=== PATIENT | male | born 1980 | race African-American/Black ===

== ENCOUNTER 2017-11-22 08:33 | Emergency (ER) | payer MEDICARE, BC ==
[2017-11-22 09:44] LABS: Hemoglobin 13.9 g/dL (14.0-18.0); Mean Corpuscular HGB CONC 32.6 g/dL (32.0-36.0); Mean Corpuscular Hemoglobin 27.4 pg (27.0-31.0); Mean Corpuscular Volume 84.1 fl (80.0-94.0); Platelet Count 213 thou/uL (130-400); RBC Distribution Width 12.9 % (11.5-14.5); Red Blood Cell (RBC) Count 5.07 mill/uL (4.70-6.10); White Blood Cell (WBC) Count 21.8 thou/uL (4.8-10.8)
[2017-11-22 09:47] LABS: Band 13 % (5-11); Lymphocytes 8 % (21-51); MDiff Complete? YES; Monocytes 2 % (0-10); Neutrophil 77 % (42-75); RBC Morphology Normal
[2017-11-22 09:50] LABS: ALT (SGPT) 11 U/L (8-55); AST (SGOT) 14 U/L (5-34); Albumin 3.7 g/dL (3.5-5.0); Alkaline Phosphatase 91 U/L (40-150); Anion Gap 11 mmol/L (10-20); BUN (Urea Nitrogen) 12 mg/dL (8.9-20.6); Bilirubin, Total 1.4 mg/dL (0.2-1.2); Calc. Creatinine Clearance 0 mL/min (70-130); Calcium 9.4 mg/dL (7.8-10.44); Carbon Dioxide 26 mmol/L (22-29); Chloride 103 mmol/L (98-107); Estimated GFR-MDRD Greater than 90; Globulin 3.2 g/dL (2.4-3.5); Glucose 91 mg/dL (70-105); Potassium 3.3 mmol/L (3.5-5.1); Protein, Total 6.9 g/dL (6.0-8.3); Sodium 137 mmol/L (136-145)
[2017-11-22 09:50] LABS: Bilirubin Small (Negative); Blood, Urine Large (Negative); Clarity TURBID (Clear); Glucose, Urine (Dipstick) Negative (Negative); Leukocyte Large (Negative); Nitrite Positive (Negative); Protein, Urine (Dipstick) 100 mg/dL (Neg-Trace); Specific Gravity, Urine 1.027 (1.002-1.036)
[2017-11-22 09:52] LABS: Bacteria/HPF 4+ HPF (None Seen); Hyaline Casts/LPF 7-10 HYALINE CAST LPF (0-3 Hyaline); Pathc Cast-AUWi Flag 1.61 (0-2.49); RBC/HPF GREATER THAN 50-TNTC HPF (0-3); Squamous Epithelial 0-3 HPF (0-3)
--- NOTE | 2017-11-22 11:12 | ULT ---
TESTICULAR ULTRASOUND: INDICATION: Left testicular swelling for 1 day. TECHNIQUE: Mendoza scale, color Doppler, with vascular duplex and spectral analysis was performed of the scrotum. FINDINGS: The right testicle measured 4.2 x 1.9 x 2.6 cm. The left testicle measures 4.2 x 3.1 x 3.1 cm. There is increased vascular flow to the left testicle and left epididymis. There is a small left hyd rocele. IMPRESSION: Findings of left epididymal orchitis with small left hydrocele. POS: ALEX
[2017-11-22] MEDS ORDERED: Lidocaine 1% PF 5 ML VIAL ONE (11:22)
[2017-11-22] MEDS ORDERED: cefTRIAXone\\ROCEPHIN 2 GM VIAL ONE (11:22)
[2017-11-22] MEDS ORDERED: Doxycycline 100 MG CAP PO SCH (11:30)
[2017-11-22] MEDS ORDERED: Acetaminophen 500 MG TAB ONE ×2 (12:13→12:15)
[2017-11-24 21:09] LABS: Chlamydia trachomatis by NAA Negative (Negative)
== END 2017-11-22 12:19 | disposition home or self-care (01) ==
LOC: ERS 08:33
DX: N39.0 Urinary tract infection, site not specified (principal); I10 Essential (primary) hypertension
CPT/HCPCS: 36415; 51701; 76870; 80053; 81003; 81015; 83605; 85025; 87077; 87086; 87186; 87491; 87591; 93976; 96372; J0696; J2001

== ENCOUNTER 2020-06-26 04:05 | Inpatient (IN) | payer MEDICARE, OTHER ==
[2020-06-26 04:35] LABS: Actual Bicarbonate (HCO3a) 15.5 mEq/L (22-28); Analyzer IN Cardio ER; Base Excess (BEa) -8.4 mEq/L (-2.0 to +3.0); CO2 Tension 27.7 mmHg (35.0-45.0); Calcium, Ionized (arterial) 0.86 mmol/L (1.12-1.30); Carboxyhemoglobin (COHb) 1.1 gm% (0.0-3.0); Hemoglobin (Hb) 11.6 g/dL (14.0-18.0); Potassium - ABG Lab 2.75 mmol/L (3.70-5.30); pH, Arterial 7.37 (7.35-7.45)
[2020-06-26 04:37] LABS: ALV-art Gradient 622.975 mmHg (0-20); O2 Tension (PaO2), arterial 55.4 mmHg (80.0-100.0); Puncture Site RRA
[2020-06-26] MEDS ORDERED: Cefepime 2 GM VIAL ONE (04:42)
[2020-06-26 05:04] LABS: ALT (SGPT) 12 U/L (8-55); AST (SGOT) 28 U/L (5-34); Albumin 3.3 g/dL (3.5-5.0); Alkaline Phosphatase 92 U/L (40-110); Anion Gap 33 mmol/L (10-20); Calc. Creatinine Clearance 0 mL/min (70-130); Calcium 7.5 mg/dL (7.8-10.44); Carbon Dioxide 19 mmol/L (22-29); Chloride 82 mmol/L (98-107); Estimated GFR-MDRD 4; Globulin 3.7 g/dL (2.4-3.5); Glucose 196 mg/dL (70-105); Sodium 131 mmol/L (136-145)
[2020-06-26 05:13] LABS: Potassium 2.5 mmol/L (3.5-5.1)
[2020-06-26 05:14] LABS: Band 4 % (5-11); Hemoglobin 11.3 g/dL (14.0-18.0); Lymphocytes 2 % (21-51); MDiff Complete? YES; Mean Corpuscular HGB CONC 32.9 g/dL (32.0-36.0); Mean Corpuscular Hemoglobin 28.1 pg (27.0-31.0); Mean Corpuscular Volume 85.6 fL (78.0-98.0); Mean Platelet Volume 6.6 fL (7.4-10.4); Monocytes 5 % (0-10); Neutrophil 89 % (42-75); Platelet Count 130 thou/uL (130-400); RBC Distribution Width 14.8 % (11.5-14.5); Red Blood Cell (RBC) Count 4.01 mill/uL (4.70-6.10); Schistocytes SLIGHT = 2-5 cells (100X) (0-1/hpf); White Blood Cell (WBC) Count 21.6 thou/uL (4.8-10.8)
[2020-06-26 05:16] LABS: BUN (Urea Nitrogen) 123 mg/dL (8.9-20.6)
[2020-06-26] MEDS ORDERED: Nitroglycerin 0.4 MG TAB 1 EACH ONE (05:23)
[2020-06-26] MEDS ORDERED: Vancomycin 1 GM/200 ML BAG ONE (05:23)
[2020-06-26 05:36] LABS: CKMB 14.4 ng/mL (0-6.6)
[2020-06-26 05:58] LABS: SARS-CoV-2 NAA Rapid Test Not Detected (NotDetected)
[2020-06-26] MEDS ORDERED: Nitroglycerin 50 MG/250 ML BOT 250 ML ONE (06:07)
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
--- NOTE | 2020-06-26 07:34 | RAD ---
RADIOGRAPH CHEST 1 VIEW: DATE: 06/26/2020 TIME: 4:25 AM HISTORY: 40-year-old male with dyspnea COMPARISON: 01/25/2014 FINDINGS: There is a dramatic new finding of severe central consolidations involving all visualized lung arce , with relative sparing of the apical, basilar, medial, and lateral periphery of the lungs, but dense opacification of most of the lungs, with air bronchograms. No pneumothorax. IMPRESSION: Severe bilateral central consolidations: Differential diagnosis is severe pulmonary alveolar edema ve rsus severe bilateral pneumonia versus pulmonary hemorrhage .
[2020-06-26] MEDS ORDERED: cloNIDine 0.1 MG TAB ONE (07:43)
[2020-06-26 08:01] LABS: Troponin I 1.427 ng/mL (< 0.028)
[2020-06-26 08:10] LABS: HBSAg Index 0.13 S/CO (0-0.99); Hep B Core Total Ab Non-Reactive (NonReactive); Hep B Core Total Index 0.09 S/CO (0-0.79); Hep B Surf Ag Non-Reactive S/CO (NonReactive); Hep C IgG Ab Non-Reactive (NonReactive); Hep C Index 0.09 S/CO (0-0.79)
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
[2020-06-26 08:56] LABS: Lactic Acid 2.7 mmol/L (0.5-2.2)
[2020-06-26] MEDS ORDERED: Acetaminophen 325 MG TAB PO PRN (09:17)
[2020-06-26 09:44] LABS: HBSAg Index 0.19 S/CO (0-0.99); Hep B Surf Ag Non-Reactive S/CO (NonReactive)
[2020-06-26 09:47] LABS: HBSAB Concentration 1001.19 mIU/mL
[2020-06-26 09:52] LABS: Hep B Surf AB REACTIVE (NonReactive)
[2020-06-26 11:25] LABS: Hemoglobin A1c 4.1 % (4.0-6.0)
[2020-06-26] MEDS ORDERED: Heparin 5,000 UNITS/ML VIAL SC SCH (11:30)
[2020-06-26 11:33] LABS: Reticulocyte Count 6.6 % (0.5-1.5)
[2020-06-26] MEDS: Heparin 5,000 UNITS/ML VIAL SC SCH ×2 (11:33→21:34)
[2020-06-26 12:00] LABS: Troponin I 1.633 ng/mL (< 0.028)
[2020-06-26] MEDS ORDERED: methylPREDNISolone Sod Succ/PF 125 MG/2 ML VIAL IVP SCH (12:03)
[2020-06-26] MEDS: Labetalol HCl 100 MG/20 ML VIAL SLOW IVP PRN (13:38)
[2020-06-26] MEDS: Nitroglycerin 2% Ointment 1 INCH/1 GM Packet TOP SCH ×2 (13:38→23:23)
[2020-06-26] MEDS: methylPREDNISolone Sod Succ 1 GM in Sodium Chloride 0.9% 250 ML 250 ML IVPB SCH (13:42)
[2020-06-26] MEDS ORDERED: Heparin 10,000 UNITS/ 10 ML VIAL ONE (13:44)
[2020-06-26] MEDS ORDERED: niCARdipine 40MG In NaCl 40 MG/200 ML BAG IVPB SCH (14:30)
[2020-06-26] MEDS: niCARdipine 50 MG in Sodium Chloride 0.9% 250 ML 230 ML IV SCH (14:58)
--- NOTE | 2020-06-26 16:12 | ULT ---
Exam: Bilateral renal ultrasound HISTORY: Acute kidney insufficiency. Evaluate for obstruction COMPARISON: None FINDINGS: Right kidney: Cortical thinning. Increased echogenicity of the cortex. No hydronephrosis. Right kidney measurements: 9.7 x 4.3 x 4.3 cm. Left kidney: Cortical thinning. Increased echogenicity of the cortex. No hydronephrosis. Left kidney measurements 4.7 x 9.9 x 4.8 cm. Urinary bladder: Normal mucosa abnormality Incidentals: Small amount of right-sided pleural fluid. Though Doppler imaging was not performed, there does appear to be decreased vascular flow to the left and right kidney. IMPRESSION: 1. Bilateral renal cortical thinning. Increased renal cortical echogenicity. Decreased vascular flow. Correlate for medical renal disease. Consider renal Doppler. 2. No hydronephrosis.
[2020-06-26] MEDS: Carvedilol 3.125 MG TAB PO SCH (16:58)
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
[2020-06-26 18:34] LABS: Bilirubin Negative (Negative); Blood, Urine 2+ (Negative); Clarity Turbid (Clear); Glucose, Urine (Dipstick) 50 mg/dL (Negative); Ketone, Urine Trace mg/dL (Negative); Leukocyte 500 Leu/uL (Negative); Nitrite Negative (Negative); Protein, Urine (Dipstick) 600 mg/dL (Neg-Trace); Renal Epithelial 0-3 HPF (None Seen); Specific Gravity, Urine 1.014 (1.002-1.036); Squamous Epithelial 0-3 HPF (0-3); Transitional Epithelial 0-3 HPF (None Seen); Urobilinogen Normal mg/dL (Less than 2); WBC/HPF Greater than 50 HPF (0-3)
[2020-06-26 18:41] LABS: Bacteria/HPF 2+ HPF (None Seen); Sperm/HPF 1+ HPF (None Seen)
[2020-06-26 18:46] LABS: Creatinine, Urine 90.88 mg/dL (63-166)
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
[2020-06-27] MEDS: niCARdipine 50 MG in Sodium Chloride 0.9% 250 ML 230 ML IV SCH ×2 (02:27→08:41)
[2020-06-27 03:23] LABS: Band 2 % (5-11); Hemoglobin 9.5 g/dL (14.0-18.0); Lymphocytes 2 % (21-51); MDiff Complete? YES; Mean Corpuscular HGB CONC 33.1 g/dL (32.0-36.0); Mean Corpuscular Hemoglobin 28.2 pg (27.0-31.0); Mean Corpuscular Volume 85.3 fL (78.0-98.0); Mean Platelet Volume 11.6 fL (7.4-10.4); Neutrophil 96 % (42-75); Platelet Count 138 thou/uL (130-400); Platelet Morphology Comment Appears Adequate; RBC Distribution Width 15.1 % (11.5-14.5); Red Blood Cell (RBC) Count 3.36 mill/uL (4.70-6.10); White Blood Cell (WBC) Count 15.9 thou/uL (4.8-10.8)
[2020-06-27 03:31] LABS: Iron 23 ug/dL (65-175); Iron Binding Capacity, Total 155 mcg/dL (261-462)
[2020-06-27 03:32] LABS: Anion Gap 22 mmol/L (10-20); BUN (Urea Nitrogen) 89 mg/dL (8.9-20.6); Calc. Creatinine Clearance 9 mL/min (70-130); Calcium 8.3 mg/dL (7.8-10.44); Carbon Dioxide 22 mmol/L (22-29); Cardiac Risk 3.2 (Less than 4.5); Chloride 94 mmol/L (98-107); Cholesterol 146 mg/dl (< 200 Desired); Estimated GFR-MDRD 5; Glucose 145 mg/dL (70-105); HDL Cholesterol 45 mg/dL (>60 Neg Risk); LDL Cholesterol, Calculated 76 mg/dL; Potassium 3.1 mmol/L (3.5-5.1); Sodium 135 mmol/L (136-145); Triglycerides 124 mg/dL (Less than 150)
[2020-06-27 03:55] LABS: Vitamin D, 25 Hydroxy 5.9 ng/ml (> 30.0)
[2020-06-27] MEDS: Nitroglycerin 2% Ointment 1 INCH/1 GM Packet TOP SCH (06:22)
[2020-06-27] MEDS: Heparin 5,000 UNITS/ML VIAL SC SCH ×2 (07:55→21:00)
[2020-06-27] MEDS: Carvedilol 3.125 MG TAB PO SCH (07:55)
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
--- NOTE | 2020-06-27 08:52 | RAD ---
PORTABLE CHEST: COMPARISON: Prior day's study. HISTORY: Respiratory distress. FINDINGS: There has been a definite improvement to the chest. The dense alveolar opacification of the more judy tral lung arce has improved, although there are still extensive interstitial alveolar changes prese nt. Heart size is enlarged. IMPRESSION: Improvement to the dense alveolar lung consolidation still with extensive alveolar lung changes in parth th lung arce. POS: YOANDY
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
[2020-06-27] MEDS: methylPREDNISolone Sod Succ 1 GM in Sodium Chloride 0.9% 250 ML 250 ML IVPB SCH (12:15)
[2020-06-27] MEDS: cloNIDine 0.1 MG TAB PO PRN (12:37)
--- NOTE | 2020-06-27 13:59 | PRG ---
DATE OF SERVICE: 06/27/2020 SUBJECTIVE: [place] says he feels 100% better. He is on a cannula. OBJECTIVE: VITAL SIGNS: He is afebrile. Blood pressure still modestly elevated at 145/94, respiratory rate is in teens, heart rate is 118. LUNGS: Remarkable for equal breath sounds with fine crackles at his bases. HEART: Regular rhythm. There is no S4. ABDOMEN: Soft and nontender. LABORATORY DATA: White count 15.9, hemoglobin 9.5, platelets 138. Sedimentation rate was 60. Hepatitis studies are negative, except for the surface antibody. Surface antigen was negative. COVID screen was negative. Creatinine is down to 12.45. Potassium is 3.1. Urinalysis showed 600 mg/dL protein and 11 to 20 red cells. IMPRESSION: Possible pulmonary renal syndrome. Cortical thinning may be secondary to hypertension, but may be unrelated to the chest x-ray. Failure to see dramatic improvement in his radiograph and history of hemoptysis argues that maybe he has a pulmonary hemorrhage syndrome. Serology has been sent. I do not feel bronchoscopy is indicated at this time. We will follow closely. He is empirically started on 1 g a day of Solu-Medrol for 3 days. Job ID: [id number]
[2020-06-27 14:09] LABS: Ferritin 986.74 ng/mL (22-322)
[2020-06-27] MEDS ORDERED: hydrALAZINE 10 MG TAB PO SCH (15:00)
[2020-06-27] MEDS ORDERED: hydrALAZINE 25 MG TAB PO SCH (15:30)
--- NOTE | 2020-06-27 17:32 | PRG ---
DATE OF SERVICE: 06/27/2020 SUBJECTIVE: Patient was seen and examined at bedside and overnight events noted. Patient denies any shortness of breath or chest pain or palpitation. No history of nausea or vomiting or diarrhea or fever or chills or cramps. OBJECTIVE: GENERAL: This is a well-built male, in no apparent distress. VITAL SIGNS: Temperature 98.6. Heart rate 113. Respiratory rate 28. Blood pressure 171/108. HEENT: Atraumatic, normocephalic. Oral mucosa is moist NECK: Supple. CARDIOVASCULAR: S1, S2 heard. Rate and rhythm regular. RESPIRATORY: Clear to auscultation. GASTROINTESTINAL: Abdomen is soft. MUSCULOSKELETAL: No tenderness. No edema. DERMATOLOGIC: No skin rash. NEUROLOGIC: Alert and awake and oriented X3. No focal neurologic deficits. Moving all the extremities. PSYCHIATRIC: Mood and affect normal. LABORATORY DATA: Hemoglobin 9.5. Potassium 3.1, BUN is 89, creatinine is 12.4. ASSESSMENT AND PLAN: 1. Acute kidney injury on chronic kidney disease stage 4, dialysis dependent. Plan to have dialysis today. The patient's renal ultrasound showing renal scarring and possibility of hypertensive nephrosclerosis. Possibility of pulmonary renal syndrome is also being considered and serologies being send and I am awaiting the results. Appreciate help from Pulmonology. Plan is to continue on dialysis for now and once uremia is cleared, we will consider renal biopsy, even though smaller kidneys may have lower yield . 2. Vitamin D deficiency since secondary hyperparathyroidism. 3. Hypokalemia. We will use 4K bath. 4. Acidosis. 5. Leukocytosis. 6. Anemia . 7. Hematuria with possible nephritic picture. 8. Nephrotic range proteinuria. Sugar remains controlled. Proteinuria suggest renal immunological process going on. 9. We will continue on dialysis and avoid nephrotoxins. We will follow. 'Thank you for the consult. Job ID: [id number]
[2020-06-27] MEDS: Carvedilol 6.25 MG TAB PO SCH (21:01)
[2020-06-27] MEDS: hydrALAZINE 25 MG TAB PO SCH (21:01)
[2020-06-27] MEDS: Isosorbide Mononitrate 20 MG TAB PO SCH (21:02)
[2020-06-28] MEDS: cloNIDine 0.1 MG TAB PO PRN ×2 (03:08→13:01)
[2020-06-28 04:55] LABS: Band 14 % (5-11); Hemoglobin 8.8 g/dL (14.0-18.0); Lymphocytes 2 % (21-51); MDiff Complete? YES; Mean Corpuscular HGB CONC 33.4 g/dL (32.0-36.0); Mean Corpuscular Hemoglobin 28.8 pg (27.0-31.0); Mean Corpuscular Volume 86.3 fL (78.0-98.0); Mean Platelet Volume 10.3 fL (7.4-10.4); Monocytes 4 % (0-10); Neutrophil 80 % (42-75); Platelet Count 188 thou/uL (130-400); RBC Distribution Width 15.8 % (11.5-14.5); Red Blood Cell (RBC) Count 3.07 mill/uL (4.70-6.10); White Blood Cell (WBC) Count 12.5 thou/uL (4.8-10.8)
[2020-06-28] MEDS: Aspirin 81 mg Enteric Coated Tablet PO SCH (08:20)
[2020-06-28] MEDS: Carvedilol 6.25 MG TAB PO SCH ×2 (08:20→17:36)
[2020-06-28] MEDS: Isosorbide Mononitrate 20 MG TAB PO SCH ×2 (08:21→20:58)
[2020-06-28] MEDS: Heparin 5,000 UNITS/ML VIAL SC SCH ×2 (08:21→20:58)
[2020-06-28] MEDS: hydrALAZINE 25 MG TAB PO SCH ×3 (08:21→20:58)
--- NOTE | 2020-06-28 09:22 | RAD ---
CHEST 1 VIEW: Date: 06/28/2020 INDICATION: History of intubation. COMPARISON: Prior exam dated 06/27/2020. FINDINGS: Bilateral air space disease persists. Mild cardiomegaly is stable. No pleural effusion or pneumothora x is evident. IMPRESSION: 1. Stable bilateral pneumonia. 2. Stable cardiomegaly. POS: BH
[2020-06-28 10:26] LABS: Anion Gap 22 mmol/L (10-20); BUN (Urea Nitrogen) 96 mg/dL (8.9-20.6); Calc. Creatinine Clearance 9 mL/min (70-130); Calcium 8.9 mg/dL (7.8-10.44); Carbon Dioxide 21 mmol/L (22-29); Chloride 96 mmol/L (98-107); Estimated GFR-MDRD 6; Glucose 142 mg/dL (70-105); Potassium 3.6 mmol/L (3.5-5.1); Sodium 135 mmol/L (136-145)
[2020-06-28] MEDS: Ergocalciferol 1.25 MG(50,000 UNITS) CAP PO SCH (11:13)
--- NOTE | 2020-06-28 11:47 | PDOC.CPN ---
- Subjective Date: 06/28/20 Time: 13:43 Interval history: No complaints today No urine output per pt - Objective Allergies/Adverse Reactions: Allergies Allergy/AdvReac Type Severity Reaction Status Date / Time No Known Allergies Allergy Verified 06/26/20 07:39 Visit Medications: Current Medications Acetaminophen (Acetaminophen 325 Mg Tab) 650 mg PO Q4H PRN PRN Reason: Headache/Fever/Mild Pain (1-3) Aspirin (Aspirin 81 Mg Enteric Coated Tablet) 81 mg PO DAILY [facility] Last Admin: 06/28/20 08:20 Dose: 81 mg Documented by: Carvedilol (Carvedilol 6.25 Mg Tab) 6.25 mg PO BID-[facility] Last Admin: 06/28/20 08:20 Dose: 6.25 mg Documented by: Clonidine (Clonidine 0.1 Mg Tab) 0.1 mg PO Q4H PRN PRN Reason: SBP GREATER THAN 160 Last Admin: 06/28/20 03:08 Dose: 0.1 mg Documented by: Ergocalciferol (Ergocalciferol 1.25 Mg(50,000 Units) Cap) 1.25 mg PO Q7DAYS [facility] Last Admin: 06/28/20 11:13 Dose: 1.25 mg Documented by: Heparin Sodium (Porcine) (Heparin 5,000 Units/Ml Vial) 5,000 units SC BID [facility] Last Admin: 06/28/20 08:21 Dose: 5,000 units Documented by: Hydralazine HCl (Hydralazine 25 Mg Tab) 50 mg PO TID [facility] Last Admin: 06/28/20 08:21 Dose: 50 mg Documented by: Methylprednisolone Sodium Succinate 1 gm/ Sodium Chloride 266 mls @ 266 mls/hr IVPB 1300 [facility] Stop: 06/28/20 13:59 Last Admin: 06/27/20 12:15 Dose: 266 mls Documented by: Nicardipine HCl 50 mg/ Sodium (Chloride) 250 mls @ 0 mls/hr IV INF [facility]; Protocol Last Admin: 06/27/20 08:41 Dose: 250 mls Documented by: Isosorbide Mononitrate (Isosorbide Mononitrate 20 Mg Tab) 10 mg PO BID [facility] Last Admin: 06/28/20 08:21 Dose: 10 mg Documented by: Labetalol HCl (Labetalol Hcl 100 Mg/20 Ml Vial) 20 mg SLOW IVP Q4H PRN PRN Reason: TO KEEP SBP <180 Last Admin: 06/26/20 13:38 Dose: 20 mg Documented by: Sodium Chloride (Flush - Normal Saline 10 Ml Syringe) 10 ml IVF Q12HR [facility] Last Admin: 06/28/20 08:22 Dose: 10 ml Documented by: Sodium Chloride (Flush - Normal Saline 10 Ml Syringe) 10 ml IVF PRN PRN PRN Reason: Saline Flush Vital Signs & Weight: Vital Signs Temp BP Pulse Ox 06/28/20 08:21 188/119 H 06/28/20 08:20 188/119 H 06/28/20 07:08 97.3 F L 06/28/20 04:59 99 06/28/20 03:13 97.6 F Weight 168 lb 7 oz - Physical Exam General: alert & oriented x3 Neck: no masses, no bruit Cardiac: regular rate, regular rhythm Lungs: normal exam - Labs Result Diagrams: 06/28/20 03:02 06/28/20 09:56 Troponin/CKMB CK-MB (CK-2) 14.4 ng/mL (0-6.6) H* 06/26/20 04:26 Troponin I 1.633 ng/mL (< 0.028) H* 06/26/20 11:05 - Assessment/Plan Assessment/Plan: cardiomyopathy 30-35% sepsis hemiplegia Renal failure HTN Pt currently stable BP markedly elevated and given renal function, will defer recs to nephrology avoid nephrotoxic agents
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
[2020-06-28] MEDS ORDERED: Heparin 10,000 UNITS/ 10 ML VIAL ONE (14:56)
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
--- NOTE | 2020-06-28 16:37 | PRG ---
DATE OF SERVICE: 06/28/2020 SUBJECTIVE: Patient was seen and examined at bedside and overnight events noted. Patient denies any shortness of breath or chest pain or palpitation. No history of nausea or vomiting or diarrhea or fever or chills or cramps. OBJECTIVE: GENERAL: This is a well-built male, in no apparent distress. VITAL SIGNS: Temperature 97.3. Heart rate 109. Respiratory rate . Blood pressure 116/90. HEENT: Atraumatic, normocephalic. Oral mucosa is moist NECK: Supple. CARDIOVASCULAR: S1, S2 heard. Rate and rhythm regular. RESPIRATORY: Clear to auscultation. GASTROINTESTINAL: Abdomen is soft. MUSCULOSKELETAL: No tenderness. No edema. DERMATOLOGIC: No skin rash. NEUROLOGIC: Alert and awake and oriented X3. No focal neurologic deficits. Moving all the extremities. PSYCHIATRIC: Mood and affect normal. LABORATORY DATA: Potassium is 3.6, BUN is 96, creatinine is 11.3. ASSESSMENT AND PLAN: 1. Acute kidney injury on chronic kidney disease stage 4, remains dialysis dependent and oliguric. Plan to continue dialysis. We will have dialysis today. 2. Hypokalemia, better. 3. Vitamin D deficiency and secondary hyperparathyroidism. 4. Possible hypertensive nephrosclerosis, but pulmonary renal syndrome is also being considered, but awaiting serologies and have to consider renal biopsy . 5. Acidosis. 6. Anemia. 7. Hematuria. Continue dialysis. Monitor urine output. Avoid nephrotoxins. Follow up on serology tests. We will follow. Job ID: [id number]
[2020-06-28] MEDS: methylPREDNISolone Sod Succ 1 GM in Sodium Chloride 0.9% 250 ML 250 ML IVPB SCH (17:36)
[2020-06-29 03:58] LABS: Band 1 % (5-11); Hemoglobin 9.6 g/dL (14.0-18.0); Lymphocytes 3 % (21-51); MDiff Complete? YES; Mean Corpuscular HGB CONC 32.8 g/dL (32.0-36.0); Mean Corpuscular Hemoglobin 28.5 pg (27.0-31.0); Mean Corpuscular Volume 86.8 fL (78.0-98.0); Mean Platelet Volume 10.1 fL (7.4-10.4); Monocytes 3 % (0-10); Neutrophil 93 % (42-75); Platelet Count 223 thou/uL (130-400); Platelet Morphology Comment Appears Adequate; Red Blood Cell (RBC) Count 3.36 mill/uL (4.70-6.10); White Blood Cell (WBC) Count 10.5 thou/uL (4.8-10.8)
[2020-06-29 04:05] LABS: Anion Gap 20 mmol/L (10-20); BUN (Urea Nitrogen) 59 mg/dL (8.9-20.6); Calc. Creatinine Clearance 15 mL/min (70-130); Calcium 8.9 mg/dL (7.8-10.44); Carbon Dioxide 24 mmol/L (22-29); Chloride 98 mmol/L (98-107); Estimated GFR-MDRD 10; Glucose 193 mg/dL (70-105); Potassium 3.4 mmol/L (3.5-5.1); Sodium 139 mmol/L (136-145)
[2020-06-29] MEDS: cloNIDine 0.1 MG TAB PO PRN ×2 (06:04→19:40)
[2020-06-29] MEDS: hydrALAZINE 25 MG TAB PO SCH ×3 (08:36→21:22)
[2020-06-29] MEDS: Aspirin 81 mg Enteric Coated Tablet PO SCH (08:36)
[2020-06-29] MEDS: Heparin 5,000 UNITS/ML VIAL SC SCH ×2 (08:36→21:23)
[2020-06-29] MEDS: Carvedilol 6.25 MG TAB PO SCH ×3 (08:36→21:23)
--- NOTE | 2020-06-29 09:01 | RAD ---
CHEST ONE VIEW: INDICATIONS: History of dyspnea. COMPARISON: 06/28/2020 FINDINGS: Bilateral air space disease appears less prominent. Cardiomegaly persists. No pleural effusion or pne umothorax is evident. Osseous structures are unchanged. IMPRESSION: Improving bilateral air space disease. POS: BH
[2020-06-29] MEDS: Isosorbide Mononitrate 20 MG TAB PO SCH ×2 (11:00→21:23)
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
--- NOTE | 2020-06-29 14:29 | PRG ---
DATE OF SERVICE: 06/29/2020 SUBJECTIVE: Patient was seen and examined at bedside and overnight events noted. Patient denies any shortness of breath or chest pain or palpitation. No history of nausea or vomiting or diarrhea or fever or chills or cramps. OBJECTIVE: GENERAL: This is a well-built male, in no apparent distress. VITAL SIGNS: Temperature 98.1. Heart rate 106. Respiratory rate 20. Blood pressure 164/108. HEENT: Atraumatic, normocephalic. Oral mucosa is moist. NECK: Supple. CARDIOVASCULAR: S1, S2 heard. Rate and rhythm regular. RESPIRATORY: Clear to auscultation. GASTROINTESTINAL: Abdomen is soft. MUSCULOSKELETAL: No tenderness. No edema. DERMATOLOGIC: No skin rash. NEUROLOGIC: Alert and awake and oriented x3. No focal neurologic deficits. Moving all the extremities. PSYCHIATRIC: Mood and affect normal. LABORATORY DATA: Potassium 3.4, BUN is 59, and creatinine is 7.27. ASSESSMENT AND PLAN: 1. Acute kidney injury on chronic kidney disease, stage 4, remains dialysis dependent. He is feeling a lot better since admission and especially after dialysis yesterday, which is encouraging. His x-ray also seems to be better. 2. Hypokalemia. We will monitor. 3. Vitamin D deficiency. 4. Secondary hyperparathyroidism. 5. Hypertensive nephrosclerosis. 6. Possible pulmonary renal syndrome. Even though showing significant improvement fluid removal with dialysis. Serologies are pending. He had 3 doses of steroids. Continue to monitor. Follow with Pulmonology. 7. Acidosis. 8. Anemia of chronic disease. 9. Hematuria. Renal biopsy could be considered even though low yield could be expected based on the small size of the kidneys and possible sclerosis with increased echogenicity. Continue dialysis as tolerated. Monitor renal function and urine output and consider biopsy. Follow up serologies results. We will follow. Job ID: [id number]
--- NOTE | 2020-06-29 14:47 | PDOC.CPN ---
- Subjective Date: 06/29/20 Time: 14:44 Interval history: NO changes noted overnight BP still elevated No significant UO noted - Objective Allergies/Adverse Reactions: Allergies Allergy/AdvReac Type Severity Reaction Status Date / Time No Known Allergies Allergy Verified 06/26/20 07:39 Visit Medications: Current Medications Acetaminophen (Acetaminophen 325 Mg Tab) 650 mg PO Q4H PRN PRN Reason: Headache/Fever/Mild Pain (1-3) Aspirin (Aspirin 81 Mg Enteric Coated Tablet) 81 mg PO DAILY [facility] Last Admin: 06/29/20 08:36 Dose: 81 mg Documented by: Carvedilol (Carvedilol 6.25 Mg Tab) 6.25 mg PO BID-[facility] Last Admin: 06/29/20 08:36 Dose: 6.25 mg Documented by: Clonidine (Clonidine 0.1 Mg Tab) 0.1 mg PO Q4H PRN PRN Reason: SBP GREATER THAN 160 Last Admin: 06/29/20 06:04 Dose: 0.1 mg Documented by: Ergocalciferol (Ergocalciferol 1.25 Mg(50,000 Units) Cap) 1.25 mg PO Q7DAYS [facility] Last Admin: 06/28/20 11:13 Dose: 1.25 mg Documented by: Heparin Sodium (Porcine) (Heparin 5,000 Units/Ml Vial) 5,000 units SC BID [facility] Last Admin: 06/29/20 08:36 Dose: 5,000 units Documented by: Hydralazine HCl (Hydralazine 25 Mg Tab) 50 mg PO TID [facility] Last Admin: 06/29/20 08:36 Dose: 50 mg Documented by: Nicardipine HCl 50 mg/ Sodium (Chloride) 250 mls @ 0 mls/hr IV INF [facility]; Protocol Last Admin: 06/27/20 08:41 Dose: 250 mls Documented by: Isosorbide Mononitrate (Isosorbide Mononitrate 20 Mg Tab) 10 mg PO BID [facility] Last Admin: 06/29/20 11:00 Dose: 10 mg Documented by: Labetalol HCl (Labetalol Hcl 100 Mg/20 Ml Vial) 20 mg SLOW IVP Q4H PRN PRN Reason: TO KEEP SBP <180 Last Admin: 06/26/20 13:38 Dose: 20 mg Documented by: Sodium Chloride (Flush - Normal Saline 10 Ml Syringe) 10 ml IVF Q12HR [facility] Last Admin: 06/29/20 11:00 Dose: 10 ml Documented by: Sodium Chloride (Flush - Normal Saline 10 Ml Syringe) 10 ml IVF PRN PRN PRN Reason: Saline Flush Vital Signs & Weight: Vital Signs Temp Pulse Ox 06/29/20 11:13 98.1 F 06/29/20 07:09 98.7 F 06/29/20 03:51 99 Weight 160 lb 7.944 oz - Physical Exam General: alert & oriented x3 Neck: no masses, no bruit Cardiac: regular rate, regular rhythm Lungs: normal exam Neuro: grossly intact - Labs Result Diagrams: 06/29/20 03:10 06/29/20 03:10 Troponin/CKMB CK-MB (CK-2) 14.4 ng/mL (0-6.6) H* 06/26/20 04:26 Troponin I 1.633 ng/mL (< 0.028) H* 06/26/20 11:05 - Assessment/Plan Assessment/Plan: cardiomyopathy 30-35% sepsis hemiplegia Renal failure HTN Avoid nephrotxic agents increase imdur increase coreg on hydralazine
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
[2020-06-29] MEDS: Labetalol HCl 100 MG/20 ML VIAL SLOW IVP PRN (23:09)
[2020-06-30 03:30] LABS: Hemoglobin 9.5 g/dL (14.0-18.0); Hypochromia SLIGHT = 6-15 cells (100X) (0-5/hpf); Lymphocytes 8 % (21-51); MDiff Complete? YES; Mean Corpuscular HGB CONC 32.2 g/dL (32.0-36.0); Mean Corpuscular Hemoglobin 28.3 pg (27.0-31.0); Mean Corpuscular Volume 87.8 fL (78.0-98.0); Mean Platelet Volume 9.7 fL (7.4-10.4); Monocytes 4 % (0-10); Neutrophil 88 % (42-75); Platelet Count 235 thou/uL (130-400); Platelet Morphology Comment Appears Adequate; RBC Distribution Width 16.8 % (11.5-14.5); Red Blood Cell (RBC) Count 3.34 mill/uL (4.70-6.10); White Blood Cell (WBC) Count 17.6 thou/uL (4.8-10.8)
[2020-06-30 03:35] LABS: Anion Gap 21 mmol/L (10-20); BUN (Urea Nitrogen) 102 mg/dL (8.9-20.6); Calc. Creatinine Clearance 10 mL/min (70-130); Calcium 8.5 mg/dL (7.8-10.44); Carbon Dioxide 23 mmol/L (22-29); Chloride 97 mmol/L (98-107); Estimated GFR-MDRD 7; Glucose 132 mg/dL (70-105); Potassium 3.4 mmol/L (3.5-5.1); Sodium 138 mmol/L (136-145)
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
[2020-06-30] MEDS: Aspirin 81 mg Enteric Coated Tablet PO SCH (09:52)
[2020-06-30] MEDS: Heparin 5,000 UNITS/ML VIAL SC SCH ×2 (09:53→21:07)
[2020-06-30] MEDS: hydrALAZINE 25 MG TAB PO SCH ×3 (09:53→21:08)
[2020-06-30] MEDS: Carvedilol 6.25 MG TAB PO SCH ×4 (09:53→21:08)
[2020-06-30] MEDS: Isosorbide Mononitrate 20 MG TAB PO SCH ×2 (09:53→21:08)
--- NOTE | 2020-06-30 11:31 | PRG ---
DATE OF SERVICE: 06/30/2020 SUBJECTIVE: A 40-year-old gentleman being seen for end-stage renal disease. The patient denied nausea, vomiting, or chest pain. PHYSICAL EXAMINATION: General: The patient is awake and alert. Vital Signs: Afebrile, pulse 112, breathing at 16, blood pressure 190/124. HEENT: Head normocephalic and atraumatic. Eyes intact, no ulcers. Nose intact, no ulcers. Ears intact, no ulcers. Neck: Supple. No JVD. Chest: Symmetrical and clear. Cardiovascular: Shows S1 and S2, no rub, no murmur. Gastrointestinal: Abdomen is soft, bowel sounds positive. Extremities: Show no edema or ulcers. Skin: Shows no rash or petechiae. Musculoskeletal: Shows no joint swelling or stiffness. Genitourinary: Shows no Acosta or CVA tenderness. Neurologic: Motor intact. Cranial nerves intact. LABORATORY DATA: Labs show hemoglobin 9.5. Creatinine is 10.10. ASSESSMENT AND PLAN: 1. CKD, stage 6. Plan dialysis per schedule. 2. Hypertension. Start clonidine 0.1 t.i.d. and titrate carvedilol upwards. 3. Anemia, stable. 4. Risks versus benefits of kidney biopsy were discussed with the patient. We will consider biopsy once blood pressure is better controlled. Job ID: [id number]
--- NOTE | 2020-06-30 12:06 | PRG ---
DATE OF SERVICE: 06/30/2020 SUBJECTIVE: A 40-year-old gentleman, paraplegic. OBJECTIVE: VITAL SIGNS: pressure 174/115, saturations 98, respiratory rate 18 . CHEST: No wheezing. No crackles. CARDIAC: Normal S1 and S2. No gallops. ABDOMEN: No masses. LABORATORY DATA: White count 17,000 and H and H is unremarkable. Creatinine is 10 and BUN is 120. ASSESSMENT AND PLAN: Chronic renal failure, respiratory failure, and paraplegic. Pulmonary villanueva, disposition as per primary care physician. Not much to offer at this stage. We will follow. Job ID: [id number]
[2020-06-30] MEDS ORDERED: Heparin 10,000 UNITS/ 10 ML VIAL ONE (15:01)
[2020-06-30 15:37] LABS: Cytoplasmic (C-ANCA) <1:20 titer (Neg:<1:20); Myeloperoxidase AutoAbs <9.0 U/mL (0.0-9.0); Perinuclear (P-ANCA) <1:20 titer (Neg:<1:20); Proteinase-3 AutoAbs Less than 3.5 U/mL (0.0-3.5)
[2020-06-30] MEDS: cloNIDine 0.1 MG TAB PO SCH ×2 (16:13→21:08)
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
--- NOTE | 2020-06-30 19:28 | PQF ---
CLINICAL DOCUMENTATION CLARIFICATION FORM: Dear Dr. KELLEE DUMONT Date: 06-30-20 Please exercise your independent, professional judgment in responding to the clarification form. Clinical indicators are provided on the bottom of this form for your review. Please check appropriate box(es) to clarify if the following diagnosis has been ruled in our ruled out: SEPSIS [ ] Ruled in diagnosis [ ] Continue to treat [ ] Resolved [ x ] Ruled out diagnosis [ ] Improving [ ] Cannot rule out diagnosis [ ] Other diagnosis [ ] Unable to determine In addition, please specify: Present on Admission (POA): [ ] Yes [ ] No [ ] Unable to determine For continuity of documentation, please document condition throughout progress notes and discharge summary. Thank You. To be completed by CDI/Coding staff for physician review: CLINICAL INDICATORS - SIGNS / SYMPTOMS / LABS / RESULTS AND LOCATION IN MR: ER NOTES: 06-26-20: PATIENT TOLERATED THE TRIALYSIS WELL, WILL BE GETTING DIALYSIS TODAY FOR CONTINUED TREATMENT OF FLUID OVERLOAD, THE REQUIRED 30CC/KG FLUID BOLUS FOR SEPSIS, RAISING CONCERNS FOR POSSIBLE PNEUMONIA AND SEPTIC SHOCK WBC: 06-26-20: 21.6 06-27-20: 15.9 06-28-20: 12.5 06-30-20: 17.6 BANDS: 06-28-20: 14% NEUTROPHILS: 06-26-20: 89% 06-27-20: 96% LACTIC ACID: 06-26-20: 4.1, 2.7 RISK FACTORS / RESULTS AND LOCATION IN MR: ER NOTES: 06-26-20: PATIENT TOLERATED THE TRIALYSIS WELL, WILL BE GETTING DIALYSIS TODAY FOR CONTINUED TREATMENT OF FLUID OVERLOAD, THE REQUIRED 30CC/KG FLUID BOLUS FOR SEPSIS, RAISING CONCERNS FOR POSSIBLE PNEUMONIA AND SEPTIC SHOCK TREATMENTS / RESULTS AND LOCATION IN MR: ER NOTES 06-26-20: NS IVF, VANCOMYCIN IV, CEFEPIME IV CDS Signature: Araceli Adan Phone #: [phone] Date: 06-30-20 This is a permanent part of the Medical Record [facility]
[2020-07-01 03:41] LABS: Eosinophils 1 % (0-10); Hemoglobin 9.7 g/dL (14.0-18.0); Lymphocytes 10 % (21-51); MDiff Complete? YES; Mean Corpuscular HGB CONC 32.7 g/dL (32.0-36.0); Mean Corpuscular Hemoglobin 28.6 pg (27.0-31.0); Mean Corpuscular Volume 87.6 fL (78.0-98.0); Mean Platelet Volume 9.8 fL (7.4-10.4); Monocytes 9 % (0-10); Neutrophil 80 % (42-75); Platelet Count 213 thou/uL (130-400); Platelet Morphology Comment Appears Adequate; RBC Distribution Width 16.4 % (11.5-14.5); White Blood Cell (WBC) Count 13.5 thou/uL (4.8-10.8)
[2020-07-01 03:50] LABS: Anion Gap 24 mmol/L (10-20); BUN (Urea Nitrogen) 119 mg/dL (8.9-20.6); Calc. Creatinine Clearance 9 mL/min (70-130); Carbon Dioxide 21 mmol/L (22-29); Chloride 98 mmol/L (98-107); Estimated GFR-MDRD 6; Glucose 99 mg/dL (70-105); Potassium 3.7 mmol/L (3.5-5.1); Sodium 139 mmol/L (136-145)
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
[2020-07-01] MEDS: Aspirin 81 mg Enteric Coated Tablet PO SCH (08:31)
[2020-07-01] MEDS: Isosorbide Mononitrate 20 MG TAB PO SCH ×2 (08:31→21:47)
[2020-07-01] MEDS: cloNIDine 0.1 MG TAB PO SCH ×3 (08:31→21:47)
[2020-07-01] MEDS: hydrALAZINE 25 MG TAB PO SCH ×3 (08:32→21:47)
[2020-07-01] MEDS: Carvedilol 6.25 MG TAB PO SCH (08:32)
[2020-07-01] MEDS: Heparin 5,000 UNITS/ML VIAL SC SCH ×2 (08:32→21:47)
--- NOTE | 2020-07-01 11:35 | PRG ---
DATE OF SERVICE: 07/01/2020 SUBJECTIVE: A 40-year-old gentleman, being seen for end-stage renal disease. The patient denies any nausea, vomiting, or chest pain. OBJECTIVE: General: The patient is awake and alert. Vital Signs: Afebrile, pulse 75, breathing at 16, blood pressure 168/111. HEENT: Head normocephalic and atraumatic. Eyes intact, no ulcers. Nose intact, no ulcers. Ears intact, no ulcers. Neck: Supple. No JVD. Chest: Symmetrical and clear. Cardiovascular: Shows S1 and S2, no rub, no murmur. Gastrointestinal: Abdomen is soft, bowel sounds positive. Extremities: Show no edema or ulcers. Skin: Shows no rash or petechiae. Musculoskeletal: Shows no joint swelling or stiffness. Genitourinary: Shows no Acosta or CVA tenderness. Neurologic: Motor intact. Cranial nerves intact. LABORATORY DATA: Reviewed. ASSESSMENT AND PLAN: 1. Stage 6 chronic kidney disease, plan dialysis. 2. Hypertension, stable. 3. Anemia, stable. 4. Medication based on GFR appropriate. Job ID: [id number]
--- NOTE | 2020-07-01 17:21 | PRG ---
DATE OF SERVICE: 07/01/2020 SUBJECTIVE: Mr. Sawyer'reece vasculitis serologies are all negative. OBJECTIVE: VITAL SIGNS: Blood pressure still elevated with diastolics over 100 twice this afternoon. LUNGS: Clear. HEART: Regular rhythm. ABDOMEN: Soft. LABORATORY DATA: His lupus panel is pending. Chest radiograph, slowly improving. I suspect he had some alveolar hemorrhage with his hypertension, which is why his radiographs taken so long to clear. He is on room air now. IMPRESSION: 1. Uncontrolled hypertension. 2. Renal failure. 3. Cardiomyopathy, most likely secondary to uncontrolled hypertension. PLAN: 1. It is imperative to get his blood pressure under control. 2. Consultation for long-term access is probably the next step for dialysis. He inquired about renal transplantation. I have explained to him that is an option in the future, but that will be down the road. Job ID: [id number]
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
[2020-07-01] MEDS: Carvedilol 25 MG TAB PO SCH (21:47)
[2020-07-02] MEDS: cloNIDine 0.1 MG TAB PO PRN (03:54)
[2020-07-02 04:23] LABS: Band 2 % (5-11); Hemoglobin 9.1 g/dL (14.0-18.0); Hypochromia SLIGHT = 6-15 cells (100X) (0-5/hpf); Lymphocytes 16 % (21-51); MDiff Complete? YES; Mean Corpuscular HGB CONC 28.5 g/dL (32.0-36.0); Mean Corpuscular Hemoglobin 24.9 pg (27.0-31.0); Mean Corpuscular Volume 87.6 fL (78.0-98.0); Mean Platelet Volume 10.3 fL (7.4-10.4); Monocytes 8 % (0-10); Neutrophil 74 % (42-75); Platelet Count 228 thou/uL (130-400); Platelet Morphology Comment Appears Adequate; RBC Distribution Width 16.9 % (11.5-14.5); Red Blood Cell (RBC) Count 3.65 mill/uL (4.70-6.10); White Blood Cell (WBC) Count 13.9 thou/uL (4.8-10.8)
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
[2020-07-02] MEDS: hydrALAZINE 25 MG TAB PO SCH ×3 (08:16→20:20)
[2020-07-02] MEDS: Carvedilol 25 MG TAB PO SCH ×2 (08:16→20:19)
[2020-07-02] MEDS: Aspirin 81 mg Enteric Coated Tablet PO SCH (08:16)
[2020-07-02] MEDS: cloNIDine 0.1 MG TAB PO SCH ×3 (08:16→20:20)
[2020-07-02] MEDS: Heparin 5,000 UNITS/ML VIAL SC SCH ×2 (08:20→20:18)
[2020-07-02] MEDS: Isosorbide Mononitrate 20 MG TAB PO SCH ×2 (08:29→20:19)
[2020-07-02] MEDS ORDERED: cloNIDine 0.1 MG TAB PO SCH (09:00)
--- NOTE | 2020-07-02 09:15 | PRG ---
DATE OF SERVICE: 07/02/2020 SUBJECTIVE: A 40-year-old gentleman being seen for end-stage renal disease. The patient denies any nausea, vomiting, or chest pain. PHYSICAL EXAMINATION: General: The patient is awake and alert. Vital Signs: Afebrile, pulse 82, breathing at 16, blood pressure 152/111. HEENT: Head normocephalic and atraumatic. Eyes intact, no ulcers. Nose intact, no ulcers. Ears intact, no ulcers. Neck: Supple. No JVD. Chest: Symmetrical and clear. Cardiovascular: Shows S1 and S2, no rub, no murmur. Gastrointestinal: Abdomen is soft, bowel sounds positive. Extremities: Show no edema or ulcers. Skin: Shows no rash or petechiae. Musculoskeletal: Shows no joint swelling or stiffness. Genitourinary: Shows no Acosta or CVA tenderness. Neurologic: Motor intact. Cranial nerves intact. LABORATORY DATA: Labs show hemoglobin 9.1. Potassium 3.7. ASSESSMENT AND PLAN: 1. Stage 6 chronic kidney disease, plan dialysis. 2. Hypertension. Increase Coreg q.12 and add amlodipine 2.5 mg daily. 3. Anemia, stable. 4. Medication based on GFR appropriate. The patient can have a kidney biopsy after blood pressure is controlled. Job ID: [id number]
[2020-07-02] MEDS: Amlodipine 5 MG TAB PO SCH (12:11)
[2020-07-02] MEDS ORDERED: Heparin 10,000 UNITS/ 10 ML VIAL ONE (12:27)
--- NOTE | 2020-07-02 15:21 | PRG ---
DATE OF SERVICE: 07/02/2020 SUBJECTIVE: [place] is stable. He is being dialyzed when I saw him this morning. OBJECTIVE: VITAL SIGNS: Oximetry is 100% on room air. LUNGS: Clear. HEART: Regular rhythm. ABDOMEN: Soft. LABORATORY DATA: White count 13.9, hemoglobin 9.1, and platelets 228. BUN 119, creatinine 11.4. Lupus panel still pending. IMPRESSION: Hypertension induced renal failure with congestive heart failure as well as alveolar hemorrhage on presentation. Overall, he is slowly improving. He needs better control of his blood pressure before he was discharged. He understands this. We will continue to follow loosely. Job ID: [id number]
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
[2020-07-03 01:13] LABS: SARS-CoV-2 MS2 Positive; SARS-CoV-2 N Gene Negative; SARS-CoV-2 S Gene Negative; SARS-CoV-2 by NAA Not Detected (NotDetected); SARS-CoV-2 orf1ab Negative
[2020-07-03 04:21] LABS: Band 1 % (5-11); Eosinophils 1 % (0-10); Hemoglobin 8.8 g/dL (14.0-18.0); Lymphocytes 17 % (21-51); MDiff Complete? YES; Mean Corpuscular HGB CONC 32.9 g/dL (32.0-36.0); Mean Corpuscular Hemoglobin 29.9 pg (27.0-31.0); Mean Corpuscular Volume 90.9 fL (78.0-98.0); Mean Platelet Volume 9.2 fL (7.4-10.4); Metamyelocyte 1 % (0-0); Monocytes 7 % (0-10); Neutrophil 73 % (42-75); Platelet Count 204 thou/uL (130-400); Platelet Morphology Comment Appears Adequate; Red Blood Cell (RBC) Count 2.95 mill/uL (4.70-6.10); White Blood Cell (WBC) Count 14.8 thou/uL (4.8-10.8)
[2020-07-03] MEDS: cloNIDine 0.1 MG TAB PO SCH ×3 (07:42→20:50)
[2020-07-03] MEDS: Heparin 5,000 UNITS/ML VIAL SC SCH ×2 (07:53→20:49)
[2020-07-03] MEDS: Carvedilol 25 MG TAB PO SCH ×2 (07:53→20:49)
[2020-07-03] MEDS: Ergocalciferol 1.25 MG(50,000 UNITS) CAP PO SCH (07:53)
[2020-07-03] MEDS: Aspirin 81 mg Enteric Coated Tablet PO SCH (07:53)
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
--- NOTE | 2020-07-03 08:08 | ULT ---
EXAM: Carotid ultrasound HISTORY: Carotid stenosis and bruit COMPARISON: None TECHNIQUE: Multiplanar grayscale and color Doppler images were obtained in a carotid ultrasound. Spec tral analysis of the Doppler waveforms were performed. FINDINGS: No significant plaque is visualized in either internal carotid artery. No significant plaque is seen in either common carotid artery. The Doppler waveforms are normal in the visualized vessels. Peak systolic velocity in the right internal carotid artery 76 cm/s. Peak systolic velocity in the right common carotid artery 78 cm/s. The right ICA/CCA ratio is 1.0. Peak systolic velocity in the left internal carotid artery 66 cm/s. Peak systolic velocity in the left common carotid artery 78 cm/s. The left ICA/CCA ratio is 0.9. Both vertebral arteries demonstrate antegrade flow without focal stenosis IMPRESSION: No evidence of hemodynamically significant stenosis.
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
[2020-07-03] MEDS ORDERED: Magnesium Citrate 300 ML BOT PO SCH (10:30)
--- NOTE | 2020-07-03 10:48 | ULT ---
RENAL ULTRASOUND WITH RENAL DOPPLER: INDICATION: Renal artery stenosis. FINDINGS: Mendoza scale images of both images obtained along with Doppler studies through aorta and renal arteries with color Doppler, spectral analysis, and velocity. Mendoza scale images of both kidneys showed mild cortical thinning and increased cortical echogenicity. No evidence of hydronephrosis. Dedicated renal ultrasound of the kidneys was not performed. Right renal artery/aortic ratio: 0.33. Right renal arcuate artery resistive index: 0.65. Left renal artery/aortic ratio: 0.57. Left renal arcuate artery resistive index: 0.52. POS: [facility]
--- NOTE | 2020-07-03 11:08 | PRG ---
DATE OF SERVICE: 07/03/2020 SUBJECTIVE: A 40-year-old gentleman, being seen for end-stage renal disease. The patient denies any nausea, vomiting, or chest pain. OBJECTIVE: General: The patient is awake and alert. Vital Signs: Afebrile, pulse 88, breathing at 16, blood pressure 131/81. HEENT: Head normocephalic and atraumatic. Eyes intact, no ulcers. Nose intact, no ulcers. Ears intact, no ulcers. Neck: Supple. No JVD. Chest: Symmetrical and clear. Cardiovascular: Shows S1 and S2, no rub, no murmur. Gastrointestinal: Abdomen is soft, bowel sounds positive. Extremities: Show no edema or ulcers. Skin: Shows no rash or petechiae. Musculoskeletal: Shows no joint swelling or stiffness. Genitourinary: Shows no Acosta or CVA tenderness. Neurologic: Motor intact. Cranial nerves intact. LABORATORY DATA: Show creatinine 11.4. ASSESSMENT AND PLAN: 1. Chronic kidney disease, stage 6. Plan dialysis. 2. Hypertension, stable. 3. Anemia, stable. 4. We will again discuss kidney biopsy since the blood pressures have been better controlled. The yield on a renal biopsy will be low as the patient has required dialysis. If the patient had appeared earlier, then treatment with Cytoxan and plasmapheresis would be an option. Job ID: [id number]
[2020-07-03] MEDS: Isosorbide Mononitrate 20 MG TAB PO SCH ×2 (11:52→22:03)
[2020-07-03] MEDS: hydrALAZINE 25 MG TAB PO SCH ×3 (11:52→22:03)
[2020-07-03] MEDS: Amlodipine 5 MG TAB PO SCH (11:52)
--- NOTE | 2020-07-03 12:00 | RAD ---
CHEST 1 VIEW: Date: 07/03/2020 INDICATION: Dyspnea. COMPARISON: Prior exam dated 07/02/2020. FINDINGS: There is stable mild cardiomegaly. Lungs are clear. No pleural effusion or pneumothorax is evident. N o acute osseous abnormality is evident. IMPRESSION: Stable cardiomegaly. POS: [facility]
[2020-07-03 12:35] LABS: ANA Symphony (Qualitative) Negative (Negative); ANA Symphony (Quantitative) 0.2 Ratio (< 0.7 Negative); EliA Thy New Method **** NEW METHOD ****; EliA Vaculitis New Method **** NEW METHOD ****; Mitochondrial Ab 1.6 U/mL (<4 Negative); Thyroid Peroxidase IgG Ab Less than 4.0 IU/mL (<25 Normal); dsDNA IgG Antibody 2.1 IU/mL (<10 Negative)
[2020-07-03 12:36] LABS: EliA Vaculitis New Method **** NEW METHOD ****; Glomerular Basemt Membrane Ab Less than 1.9 EliAU/mL (<7 Negative)
[2020-07-03 13:18] LABS: SARS-CoV-2 IgG Ab Non-Reactive (NonReactive); SARS-CoV-2 IgG Index 0.02 S/CO (< 1.40)
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
[2020-07-04 07:30] LABS: Anion Gap 23 mmol/L (10-20); BUN (Urea Nitrogen) 106 mg/dL (8.9-20.6); Calc. Creatinine Clearance 8 mL/min (70-130); Calcium 7.7 mg/dL (7.8-10.44); Carbon Dioxide 21 mmol/L (22-29); Chloride 99 mmol/L (98-107); Estimated GFR-MDRD 5; Glucose 97 mg/dL (70-105); Potassium 4.8 mmol/L (3.5-5.1); Sodium 138 mmol/L (136-145)
--- NOTE | 2020-07-04 08:22 | PRG ---
DATE OF SERVICE: 07/04/2020 SUBJECTIVE: A 40-year-old gentleman being seen for end-stage renal disease. The patient denies nausea, vomiting or chest pain. OBJECTIVE: GENERAL: The patient is awake, alert. VITAL SIGNS: Pulse 100, breathing 16, blood pressure 135/90. HEENT: Head normocephalic and atraumatic. Eyes intact, no ulcers. Nose intact, no ulcers. Ears intact, no ulcers. NECK: Supple. No JVD. CHEST: Symmetrical and clear. CARDIOVASCULAR: Shows S1 and S2, no rub, no murmur. GASTROINTESTINAL: Abdomen is soft, bowel sounds positive. EXTREMITIES: Show no edema or ulcers. SKIN: Shows no rash or petechiae. MUSCULOSKELETAL: Shows no joint swelling or stiffness. GENITOURINARY: Shows no Acosta or CVA tenderness. NEUROLOGIC: Motor intact. Cranial nerves intact. LABORATORY DATA: Hemoglobin 8.8, creatinine 12.9. ASSESSMENT: 1. Chronic kidney disease, stage 6. Plan dialysis. 2. Hypertension, stable. 3. Uremia, plan dialysis. Job ID: [id number]
[2020-07-04 08:23] LABS: Hemoglobin 8.8 g/dL (14.0-18.0); Mean Corpuscular HGB CONC 33.8 g/dL (32.0-36.0); Mean Corpuscular Hemoglobin 30.6 pg (27.0-31.0); Mean Corpuscular Volume 90.6 fL (78.0-98.0); Mean Platelet Volume 9.2 fL (7.4-10.4); Platelet Count 222 thou/uL (130-400); RBC Distribution Width 16.5 % (11.5-14.5); Red Blood Cell (RBC) Count 2.86 mill/uL (4.70-6.10); White Blood Cell (WBC) Count 14.5 thou/uL (4.8-10.8)
[2020-07-04] MEDS: Isosorbide Mononitrate 20 MG TAB PO SCH ×2 (09:24→22:03)
[2020-07-04] MEDS: hydrALAZINE 25 MG TAB PO SCH ×3 (09:24→22:02)
[2020-07-04] MEDS: Aspirin 81 mg Enteric Coated Tablet PO SCH (09:25)
[2020-07-04] MEDS: Amlodipine 5 MG TAB PO SCH (09:25)
[2020-07-04] MEDS: cloNIDine 0.1 MG TAB PO SCH ×3 (09:25→20:33)
[2020-07-04] MEDS: Heparin 5,000 UNITS/ML VIAL SC SCH ×2 (09:25→20:34)
[2020-07-04] MEDS: Carvedilol 25 MG TAB PO SCH ×2 (09:25→20:34)
[2020-07-04 09:35] LABS: Eosinophils 1 % (0-10); Hypersemented Neutrophil MODERATE; Lymphocytes 8 % (21-51); MDiff Complete? YES; Metamyelocyte 1 % (0-0); Monocytes 3 % (0-10); Neutrophil 84 % (42-75); Platelet Morphology Comment Appears Adequate; Polychromasia SLIGHT = 2-3 cells (100X) (0-2/hpf); Reactive Lymphocytes 3 % (0-10); Reflex for Review?? YES
--- NOTE | 2020-07-04 10:04 | PRG ---
DATE OF SERVICE: 07/04/2020 SUBJECTIVE: Mr. Sawyer had a good day. He was able to breathe easily. He did not have any complaints. He is able to eat well. He ate his breakfast well. He did have a conversation with his chemistry specialist, and he refused a kidney biopsy due to risk. REVIEW OF SYSTEMS: GENERAL: There is no fever, chills, productive cough. HEENT: No change in vision, hearing, or swallowing. pulmonary: He is not short of breath and breathing easily. CARDIAC : No palpitation, chest pain, or syncope. GI: There is no nausea, vomiting, or diarrhea. : He does not urinate anymore due to the renal failure. MUSCULOSKELETAL: There is no complaint of joint or muscle pains; however he is paraplegic. INTEGUMENT: There are no new skin breakdowns. NEUROLOGIC: He is paraplegic. CURRENT MEDICATIONS: 1. Amlodipine 2.5 mg daily. 2. Aspirin 81 mg daily. 3. Carvedilol 37.5 mg b.i.d. 4. Clonidine 0.1 mg t.i.d. 5. Heparin 5000 units b.i.d. 6. Hydralazine 50 mg t.i.d. 7. Isosorbide mononitrate 20 mg b.i.d. PHYSICAL EXAMINATION: VITAL SIGNS: Telemetry was reviewed. He is in sinus rhythm with occasional PVCs. Before his carvedilol this morning, his heart rate is 92, blood pressure 140/91. GENERAL: He is alert and conversational, relaxed comfortably in bed. HEENT: Show EOMI. Oropharynx is benign with moist mucosa. NECK: JVP is about 9 cm. PULMONARY: There is good air movement bilaterally. There are no crackles. It is clear to auscultation. CARDIAC: Regular rate and rhythm with normal S1 and S2. There is a 2/6 holosystolic murmur at the left sternal border. ABDOMEN: Soft, nontender. Positive bowel sounds. EXTREMITIES: He has a right AKA. Left lower extremity is warm and well perfused without significant edema; however, there is no sensation. LABORATORY VALUES: White cell count 14.5, hemoglobin 8.8, and platelets are 222. His chemistry shows that sodium is 138, potassium 4.8, BUN 106, creatinine of 12.98, his calcium is 7.7. Ultrasound was done to look for blood flow into his renal arteries. There is a decreased renal artery aortic ratio of 0.33 at the right renal artery; this is a lesser problem at the left renal at 0.57. There is also increased echogenicity within the kidneys. This suggests microvascular inflammation in the kidneys with reduced flow. This will be consistent with an autoimmune process. ASSESSMENT: 40-year-old gentleman likely to have an immunologic process that caused alveoli hemorrhage and also renal failure. The sudden increase of the hypertension likely caused reduced ejection fraction because his heart did not have a chance to compensate. He has currently adequately controlled blood pressure; however, we will need to reduce the blood pressure medication to support dialysis. It is likely that he will go on permanent dialysis; however, the decision will be deferred to chemistry specialist and the patient. It will be good to have a renal biopsy for a definitive diagnosis; however, the patient does not want to do it. For now, we will support him with controlling the blood pressure. RECOMMENDATIONS: 1. Continue with the current regimen for now. 2. Hold isosorbide mononitrate and also hydralazine today in preparation for dialysis. 3. After his blood pressure is well under control for about two weeks, we will need to repeat a partial echocardiogram to see if there is cardiac improvement after better blood pressure control. It has been a pleasure taking care of Mr. Sawyer. If you have any questions, please give me a call. The critical care time is 30 minutes. Job ID: [id number] MTDD
[2020-07-04] MEDS ORDERED: Heparin 10,000 UNITS/ 10 ML VIAL ONE (14:22)
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
[2020-07-05 04:58] LABS: Band 1 % (5-11); Hemoglobin 8.7 g/dL (14.0-18.0); Lymphocytes 16 % (21-51); MDiff Complete? YES; Mean Corpuscular HGB CONC 34.3 g/dL (32.0-36.0); Mean Corpuscular Hemoglobin 31.2 pg (27.0-31.0); Mean Corpuscular Volume 90.9 fL (78.0-98.0); Mean Platelet Volume 8.6 fL (7.4-10.4); Monocytes 9 % (0-10); Myelocyte 1 % (0-0); Neutrophil 73 % (42-75); Platelet Count 220 thou/uL (130-400); RBC Distribution Width 16.3 % (11.5-14.5); Schistocytes SLIGHT = 2-5 cells (100X) (0-1/hpf); White Blood Cell (WBC) Count 11.7 thou/uL (4.8-10.8)
[2020-07-05] MEDS ORDERED: Tuberculin PPD 0.1 ML VIAL I-DERMAL SCH (07:15)
[2020-07-05] MEDS: Tuberculin PPD 0.1 ML VIAL I-DERMAL SCH ×2 (09:16→13:33)
--- NOTE | 2020-07-05 09:16 | PRG ---
DATE OF SERVICE: 07/05/2020 SUBJECTIVE: Patient was seen and examined at bedside and overnight events noted. Patient denies any shortness of breath or chest pain or palpitation. No history of nausea or vomiting or diarrhea or fever or chills or cramps. OBJECTIVE: General: This is a well-built male, in no apparent distress. Vital Signs: Temperature 98.2. Heart rate 100. Respiratory rate 16. Blood pressure 140/97. HEENT: Atraumatic, normocephalic. Oral mucosa is moist. Neck: Supple. Cardiovascular: S1, S2 heard. Rate and rhythm regular. Respiratory: Clear to auscultation. Gastrointestinal: Abdomen is soft. Musculoskeletal: No tenderness. 1+ edema. Dermatologic: No skin rash. Neurologic: Alert and awake and oriented x3. No focal neurologic deficits. Moving all the extremities. Psychiatric: Mood and affect normal. LABORATORY DATA: Potassium is 4.8, BUN is 106, and creatinine is 12.9. ASSESSMENT AND PLAN: 1. End-stage renal disease on hemodialysis. Continue dialysis. Most likely from hypertension nephrosclerosis. 2. Immunological labs are negative. 3. Secondary hyperparathyroidism D deficiency. 4. Edema, controlled. 5. Hypertension. 6. Fluid overload. 7. Anemia of chronic disease. 8. We will continue on Epogen with dialysis. Need a dialysis access Case Management consult. PPD skin test placed. 9. The patient need outpatient placement for dialysis and long-term dialysis access. We will work on it next week. Thank you for the consult. We will add Epogen. Job ID: [id number]
[2020-07-05] MEDS: Heparin 5,000 UNITS/ML VIAL SC SCH ×2 (09:21→22:10)
[2020-07-05] MEDS: Isosorbide Mononitrate 20 MG TAB PO SCH ×2 (09:22→22:09)
[2020-07-05] MEDS: hydrALAZINE 25 MG TAB PO SCH ×3 (09:22→22:08)
[2020-07-05] MEDS: cloNIDine 0.1 MG TAB PO SCH ×2 (09:22→16:49)
[2020-07-05] MEDS: Amlodipine 5 MG TAB PO SCH (09:22)
[2020-07-05] MEDS: Carvedilol 25 MG TAB PO SCH ×2 (09:23→22:10)
[2020-07-05] MEDS: Aspirin 81 mg Enteric Coated Tablet PO SCH (09:24)
--- NOTE | 2020-07-05 13:12 | EKG ---
Test Reason : SOB Blood Pressure : / mmHG Vent. Rate : 123 BPM Atrial Rate : 123 BPM P-R Int : 130 ms QRS Dur : 084 ms QT Int : 340 ms P-R-T Axes : 068 064 058 degrees QTc Int : 486 ms Sinus tachycardia Possible Left atrial enlargement Nonspecific ST and T wave abnormality Abnormal ECG Confirmed by OLE VASQUEZ ([id number]), website/blog editor TUAN MARMOLEJO ([id number]) on 07/05/2020 1:12:21 PM Referred By: Confirmed By:OLE VASQUEZ
--- NOTE | 2020-07-05 16:53 | PDOC.HOSPP ---
- Subjective Encounter Date: 07/05/20 Encounter Time: 16:51 Subjective: This is a very pleasant 40-year-old patient who presented to the hospital for acute shortness of breath. He was found to have acute pulmonary edema suspected secondary to be related to kidneys. His creatinine apparently was 17 on admission and prior to that it was completely normal. He has since started dialysis with a track mechanic. He is being set up for outpatient hemodialysis. - Objective Vital Signs & Weight: Vital Signs (12 hours) Temp Pulse Resp BP BP Pulse Ox 07/05/20 16:50 83 07/05/20 16:49 128/86 07/05/20 15:40 98.3 F 83 18 129/74 99 07/05/20 11:45 98 F 88 16 133/78 07/05/20 09:22 100 128/86 07/05/20 08:02 98.2 F 100 16 140/97 H 99 07/05/20 08:00 99 Weight Weight 169 lb 15.622 oz Most Recent Monitor Data Heart Rate from ECG 85 NIBP 118/64 NIBP BP-Mean 82 Respiration from ECG 15 SpO2 100 I&O: 07/04/20 07/05/20 07/06/20 06:59 06:59 06:59 Intake Total 1620 1040 Output Total 0 1000 Balance 1620 40 Result Diagrams: 07/05/20 04:14 07/04/20 06:52 Radiology Reviewed by me: Yes EKG Reviewed by me: Yes Hospitalist ROS - Review of Systems Constitutional: reports: weakness, malaise Respiratory: reports: shortness of breath, SOB with excertion Cardiovascular: reports: chest pain, paroxysmal noc. dyspnea Neurological: reports: weakness, numbness - Medication Medications: Active Medications Generic Name Dose Route Start Last Admin Trade Name Freq PRN Reason Stop Dose Admin Amlodipine Besylate 2.5 mg 07/02/20 09:00 07/05/20 09:22 Amlodipine 5 Mg Tab PO 2.5 mg DAILY VIOLET Administration Aspirin 81 mg 06/28/20 09:00 07/05/20 09:24 Aspirin 81 Mg Enteric Coated Tablet PO 81 mg DAILY VIOLET Administration Carvedilol 37.5 mg 07/02/20 21:00 07/05/20 09:23 Carvedilol 25 Mg Tab PO 37.5 mg BID VIOLET Administration Clonidine 0.1 mg 06/26/20 09:17 07/02/20 03:54 Clonidine 0.1 Mg Tab PO 0.1 mg Q4H PRN Administration SBP GREATER THAN 160 Clonidine 0.1 mg 06/30/20 15:00 07/05/20 16:49 Clonidine 0.1 Mg Tab PO 0.1 mg TID VIOLET Administration Ergocalciferol 1.25 mg 06/28/20 09:00 07/03/20 07:53 Ergocalciferol 1.25 Mg(50,000 Units) Cap PO 1.25 mg Q7DAYS VIOLET Administration Heparin Sodium (Porcine) 5,000 units 06/26/20 09:17 07/05/20 09:21 Heparin 5,000 Units/Ml Vial SC 5,000 units BID VIOLET Administration Hydralazine HCl 50 mg 06/27/20 21:00 07/05/20 16:50 Hydralazine 25 Mg Tab PO 50 mg TID VIOLET Administration Nicardipine HCl 50 mg/ Sodium 250 mls @ 0 mls/hr 06/26/20 14:45 06/27/20 08:41 Chloride IV 250 mls INF VIOLET Administration Protocol As Directed Isosorbide Mononitrate 20 mg 06/29/20 21:00 07/05/20 09:22 Isosorbide Mononitrate 20 Mg Tab PO 20 mg BID VIOLET Administration Labetalol HCl 20 mg 06/26/20 09:17 06/29/20 23:09 Labetalol Hcl 100 Mg/20 Ml Vial SLOW IVP 20 mg Q4H PRN Administration TO KEEP SBP <180 Sodium Chloride 10 ml 06/26/20 21:00 07/05/20 09:24 Flush - Normal Saline 10 Ml Syringe IVF 10 ml Q12HR VIOLET Administration - Exam General Appearance: NAD, awake alert Eye: PERRL, anicteric sclera ENT: normocephalic atraumatic, no oropharyngeal lesions, moist mucosa Neck: supple, symmetric, no JVD, no thyromegaly Heart: RRR, no murmur, no gallops, no rubs, normal peripheral pulses Respiratory: CTAB, no wheezes, no rales, no ronchi, normal chest expansion Gastrointestinal: soft, non-tender, non-distended, normal bowel sounds, no palpable masses Extremities: no cyanosis, no clubbing, no edema Skin: normal turgor Neurological: cranial nerve grossly intact Musculoskeletal: normal tone, normal strength Psychiatric: normal affect, normal behavior, A&O x 3, oriented to person, oriented to place Hosp A/P (1) Pulmonary edema Code(s): J81.1 - CHRONIC PULMONARY EDEMA Status: Acute Plan: Suspected volume overload. This is in the context of likely end-stage renal disease now requiring hemodialysis. Clinically he is doing much better. (2) ESRD (end stage renal disease) on dialysis Code(s): N18.6 - END STAGE RENAL DISEASE; Z99.2 - DEPENDENCE ON RENAL DIALYSIS Status: Acute Plan: He has not started dialysis since being admitted. He will likely continue this as outpatient. (3) Acute kidney injury Code(s): N17.9 - ACUTE KIDNEY FAILURE, UNSPECIFIED Status: Acute (4) Hypertensive crisis Code(s): I16.9 - HYPERTENSIVE CRISIS, UNSPECIFIED Status: Acute Plan: Blood pressure seems better controlled since admission. - Plan old records reviewed/req, clinton catheter, PT/OT, director of social services, out of bed/ambulate, DVT proph w/lovenox
[2020-07-05] MEDS ORDERED: Amlodipine 5 MG TAB PO SCH (21:00)
[2020-07-06 04:26] LABS: Anion Gap 19 mmol/L (10-20); BUN (Urea Nitrogen) 56 mg/dL (8.9-20.6); Calc. Creatinine Clearance 11 mL/min (70-130); Calcium 7.8 mg/dL (7.8-10.44); Carbon Dioxide 23 mmol/L (22-29); Chloride 103 mmol/L (98-107); Estimated GFR-MDRD 7; Glucose 94 mg/dL (70-105); Potassium 4.9 mmol/L (3.5-5.1); Sodium 140 mmol/L (136-145)
[2020-07-06 05:37] LABS: Hemoglobin 8.5 g/dL (14.0-18.0); Mean Corpuscular HGB CONC 32.9 g/dL (32.0-36.0); Mean Corpuscular Hemoglobin 29.8 pg (27.0-31.0); Mean Corpuscular Volume 90.7 fL (78.0-98.0); Mean Platelet Volume 9.1 fL (7.4-10.4); Platelet Count 237 thou/uL (130-400); RBC Distribution Width 16.2 % (11.5-14.5); Red Blood Cell (RBC) Count 2.86 mill/uL (4.70-6.10); White Blood Cell (WBC) Count 11.9 thou/uL (4.8-10.8)
[2020-07-06 05:38] LABS: Band 4 % (5-11); Lymphocytes 18 % (21-51); MDiff Complete? YES; Monocytes 4 % (0-10); Neutrophil 74 % (42-75)
[2020-07-06 08:35] LABS: Amphetamine Not Detected (NotDetected); Barbiturates Screen Not Detected (NotDetected); Benzodiazepine Screen Not Detected (NotDetected); Cocaine Metabolite Screen Not Detected (NotDetected); Medtox Control Line Valid? VALID (VALID); Medtox Reader # READER 4; Methadone Not Detected (NotDetected); Methamphetamine Not Detected (NotDetected); Opiate Screen Not Detected (NotDetected); Oxycodone Screen Not Detected (NotDetected); Phencyclidine (PCP) Not Detected (NotDetected); THC/Cannabinoid Screen Detected (NotDetected); Tricyclic Screen Not Detected (NotDetected)
[2020-07-06] MEDS ORDERED: Amlodipine 5 MG TAB PO SCH (09:00)
[2020-07-06] MEDS: Aspirin 81 mg Enteric Coated Tablet PO SCH (09:48)
[2020-07-06] MEDS: Carvedilol 25 MG TAB PO SCH ×2 (09:48→20:37)
[2020-07-06] MEDS: Isosorbide Mononitrate 20 MG TAB PO SCH ×2 (09:48→20:37)
[2020-07-06] MEDS: hydrALAZINE 25 MG TAB PO SCH ×3 (09:48→20:37)
[2020-07-06] MEDS: Heparin 5,000 UNITS/ML VIAL SC SCH ×2 (09:49→20:36)
--- NOTE | 2020-07-06 12:00 | PRG ---
DATE OF SERVICE: 07/06/2020 SUBJECTIVE: Patient was seen and examined at bedside and overnight events noted. Patient denies any shortness of breath or chest pain or palpitation. No history of nausea or vomiting or diarrhea or fever or chills or cramps. OBJECTIVE: GENERAL: This is a well-built male, in no apparent distress. VITAL SIGNS: Temperature 98.4. Heart Rate 94. Respiratory rate 18. Blood pressure 176/104. HEENT: Atraumatic, normocephalic. Oral mucosa is moist. NECK: Supple. CARDIOVASCULAR: S1, S2 heard. Rate and rhythm regular. RESPIRATORY: Clear to auscultation. GASTROINTESTINAL: Abdomen is soft. MUSCULOSKELETAL: No tenderness. No edema. DERMATOLOGIC: No skin rash. NEUROLOGIC: Alert and awake and oriented x3. No focal neurologic deficits. Moving all the extremities. PSYCHIATRIC: Mood and affect normal. LABORATORY DATA: Potassium 4.9, BUN is 56, and creatinine is 9.5. ASSESSMENT AND PLAN: 1. End-stage renal disease, on hemodialysis. Continue dialysis as tolerated. We will have surgery consult for access placement. Immunological labs are negative. Most likely, renal injury is from hypertension, nephrosclerosis, and secondary hyperparathyroidism. 2. Vitamin D deficiency. 3. Edema. 4. History of hypertension, titrate. 5. Fluid overload. 6. Anemia of chronic disease. Surgery consult. Keep n.p.o. after midnight for possible surgical intervention tomorrow. Dr. Nicolas was notified for tomorrow's consult. Vein mapping is ordered. Follow with Case Management for outpatient placement. Job ID: [id number]
--- NOTE | 2020-07-06 13:07 | PRG ---
DATE OF SERVICE: 07/05/2020 SERVICE: Advanced Heart Failure Cardiology Consult Service. SUBJECTIVE: Mr. Sawyer had a good day. He was able to transition from IMCU to telemetry floor without any problems. He is breathing easy. He denied any palpitation, chest pain, shortness of breath. No nausea or vomiting. Everything seemed to be doing well. REVIEW OF SYSTEMS: GENERAL: There is no fever, chills, or productive cough. HEENT: There is no change in vision, hearing, or swallowing. PULMONARY: There is no shortness of breath. CARDIAC: Please see HPI. GI: There is no nausea, vomiting, or diarrhea. : He does not make any urine because he has end-stage renal disease, dependent on dialysis. MUSCULOSKELETAL: He is post right AKA. SKIN: There is no skin breakdown. NEUROLOGIC: There are no focal deficits except that he is quadriplegic, so he has chronic lack of sensation and movement from the waist on down. CURRENT MEDICATIONS: 1. Amlodipine 2.5 mg daily. 2. Aspirin 81 mg daily. 3. Carvedilol 37.5 mg q.12 hours. 4. Clonidine 0.1 mg t.i.d. 5. Retacrit 10,000 units IV 3 times a week. 6. Vitamin D, ergocalciferol 1.25 mg daily. 7. Hydralazine 50 mg t.i.d. 8. Isosorbide mononitrate 20 mg b.i.d. The telemetry was reviewed. It is a sinus rhythm, rate around 90s. PHYSICAL EXAMINATION: VITAL SIGNS: His heart rate is 83, blood pressure is 129/74. GENERAL: He is alert and conversational, reclining comfortably in bed watching TV. HEENT: EOMI. Oropharynx is benign with moist mucosa. NECK: His JVP is about 9 cm with positive hepatojugular reflux. PULMONARY: There is good air movement bilaterally. There are no crackles bilaterally. CARDIAC: Regular rate and rhythm with normal S1, S2. However, his S3 gallop is returning. ABDOMEN: Soft, nontender, more distended today. Positive bowel sounds. EXTREMITIES: His AKA is a little more edematous today. His left lower extremity there is a bit of pitting edema developing from feet about quarter way up toward knees. LABORATORY DATA: Chemistry shows sodium 138, potassium 4.8, chloride 99, BUN 106, creatinine at 12.98. ASSESSMENT: 40-year-old gentleman is well compensated and blood pressure is controlled. 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 Fortunately, his lungs have improved. Unfortunately, his kidneys will unlikely to return. When his blood pressure is controlled, we will attempt to consolidate a number of medications for ease of outpatient regimen. Please see the following for my recommendations. RECOMMENDATIONS: 1. Increase carvedilol to 50 mg p.o. q.12 hours. 2. Increase amlodipine from 2.5 to 5 mg daily. 3. Stop clonidine. Combination of carvedilol and amlodipine increase should compensate for this. 4. I have instructed the patient to watch out for increasing shortness of breath, edema. In that case, then he will need dialysis. 5. We will follow labs. If his potassium goes too high tomorrow, I will contact Nephrology, needing dialysis. It has been a pleasure taking care of Mr. Sawyer. If you have any questions, please give me a call. Visitation time is 30 minutes. Job ID: [id number] MTDD
--- NOTE | 2020-07-06 14:24 | ULT ---
BILATERAL UPPER EXTREMITY ULTRASOUND FOR VESSEL MAPPING, DIALYSIS ACCESS EVALUATION HISTORY: Dialysis catheter placement, ESRD FINDINGS: RIGHT UPPER EXTREMITY BRACHIAL ARTERY: 5.3 mm RADIAL ARTERY: 3.2 mm ULNAR ARTERY: 3.0 mm CEPHALIC VEIN Proximal Arm: 2.6 mm Mid Arm: 2.8 mm Distal Arm: 2.8 mm Antecubital Fossa: 5.2 mm Proximal Forearm: 1.6 mm Mid Forearm: 1.5 mm Distal Forearm: 1.9 mm BASILIC VEIN Proximal Arm: 3.1 mm Mid Arm: 2.7 mm Distal Arm: 3.4 mm Antecubital Fossa: 2.3 mm Proximal Forearm: 1.4 mm Mid Forearm: 1.7 mm Distal Forearm: 1.5 mm LEFT UPPER EXTREMITY BRACHIAL ARTERY: 5.2 mm RADIAL ARTERY: 2.9 mm ULNAR ARTERY: 3.7 mm CEPHALIC VEIN Proximal Arm: 1.6 mm Mid Arm: 2.2 mm Distal Arm: 2.9 mm Antecubital Fossa: 4.2 mm Proximal Forearm: 1.6 mm Mid Forearm: 1.9 mm Distal Forearm: 2.0 mm BASILIC VEIN Proximal Arm: 3.6 mm Mid Arm: 3.7 mm Distal Arm: 3.6 mm Antecubital Fossa: 3.2 mm Proximal Forearm: 1.7 mm Mid Forearm: 2.0 mm Distal Forearm: 1.3 mm Transcribed Date/Time: 07/06/2020 3:37 PM
--- NOTE | 2020-07-06 16:06 | PDOC.HOSPP ---
- Subjective Encounter Date: 07/06/20 Encounter Time: 16:04 Subjective: His renal function appears to be improving some. He is tolerating his dialysis well. Case management working on outpatient dialysis placement. - Objective Vital Signs & Weight: Vital Signs (12 hours) Temp Pulse Resp BP BP BP Pulse Ox 07/06/20 15:38 98.2 F 97 18 139/76 100 07/06/20 13:07 122/81 07/06/20 12:00 97.6 F 78 19 178/109 H 98 07/06/20 08:05 98.4 F 94 17 176/104 H 99 07/06/20 05:47 98.2 F 83 18 127/97 H 100 Weight Weight 170 lb 10.205 oz Most Recent Monitor Data Heart Rate from ECG 85 NIBP 118/64 NIBP BP-Mean 82 Respiration from ECG 15 SpO2 100 I&O: 07/05/20 07/06/20 07/07/20 06:59 06:59 06:59 Intake Total 1040 Output Total 1000 Balance 40 Result Diagrams: 07/06/20 03:39 07/06/20 03:39 Radiology Reviewed by me: Yes EKG Reviewed by me: Yes Hospitalist ROS - Review of Systems Constitutional: reports: weakness, malaise Neurological: reports: weakness - Medication Medications: Active Medications Generic Name Dose Route Start Last Admin Trade Name Lillian PRN Reason Stop Dose Admin Aspirin 81 mg 06/28/20 09:00 07/06/20 09:48 Aspirin 81 Mg Enteric Coated Tablet PO 81 mg DAILY VIOLET Administration Carvedilol 50 mg 07/05/20 21:00 07/06/20 09:48 Carvedilol 25 Mg Tab PO 50 mg BID VIOLET Administration Ergocalciferol 1.25 mg 06/28/20 09:00 07/03/20 07:53 Ergocalciferol 1.25 Mg(50,000 Units) Cap PO 1.25 mg Q7DAYS VIOLET Administration Heparin Sodium (Porcine) 5,000 units 06/26/20 09:17 07/06/20 09:49 Heparin 5,000 Units/Ml Vial SC 5,000 units BID VIOLET Administration Hydralazine HCl 50 mg 06/27/20 21:00 07/06/20 15:43 Hydralazine 25 Mg Tab PO 50 mg TID VIOLET Administration Nicardipine HCl 50 mg/ Sodium 250 mls @ 0 mls/hr 06/26/20 14:45 06/27/20 08:41 Chloride IV 250 mls INF VIOLET Administration Protocol As Directed Isosorbide Mononitrate 20 mg 06/29/20 21:00 07/06/20 09:48 Isosorbide Mononitrate 20 Mg Tab PO 20 mg BID VIOLET Administration Labetalol HCl 20 mg 06/26/20 09:17 06/29/20 23:09 Labetalol Hcl 100 Mg/20 Ml Vial SLOW IVP 20 mg Q4H PRN Administration TO KEEP SBP <180 Sodium Chloride 10 ml 06/26/20 21:00 07/06/20 09:49 Flush - Normal Saline 10 Ml Syringe IVF 10 ml Q12HR VIOLET Administration - Exam General Appearance: NAD, awake alert Eye: PERRL, anicteric sclera ENT: normocephalic atraumatic, no oropharyngeal lesions Neck: supple, symmetric, no JVD, no thyromegaly, no lymphadenopathy Heart: RRR, no murmur, no gallops Respiratory: CTAB Gastrointestinal: soft, non-tender, non-distended, normal bowel sounds Neurological: cranial nerve grossly intact, no weakness Musculoskeletal: normal tone, normal strength, no muscle wasting Psychiatric: normal affect, normal behavior, A&O x 3 Hosp A/P (1) Pulmonary edema Code(s): J81.1 - CHRONIC PULMONARY EDEMA Status: Acute Qualifiers: Chronicity: acute Qualified Code(s): J81.0 - Acute pulmonary edema Plan: Suspected hypertensive induced. Complicated by end-stage renal disease He has responded well to dialysis. We appreciate nephrology. (2) ESRD (end stage renal disease) on dialysis Code(s): N18.6 - END STAGE RENAL DISEASE; Z99.2 - DEPENDENCE ON RENAL DIALYSIS Status: Acute Plan: He is pending approval for outpatient dialysis. (3) Acute kidney injury Code(s): N17.9 - ACUTE KIDNEY FAILURE, UNSPECIFIED Status: Acute Plan: This appears to be in recovery. (4) Hypertensive crisis Code(s): I16.9 - HYPERTENSIVE CRISIS, UNSPECIFIED Status: Acute Plan: His blood pressure still not better controlled. - Plan old records reviewed/req, clinton catheter, out of bed/ambulate, DVT proph w/lovenox
[2020-07-06] MEDS: Amlodipine 5 MG TAB PO SCH (20:37)
[2020-07-07 03:33] LABS: Bilirubin Negative (Negative); Blood, Urine 1+ (Negative); Clarity Turbid (Clear); Glucose, Urine (Dipstick) Normal (Negative); Ketone, Urine Negative (Negative); Leukocyte 500 Leu/uL (Negative); Nitrite Negative (Negative); Protein, Urine (Dipstick) 100 mg/dL (Neg-Trace); RBC/HPF 21-50 HPF (0-3); Squamous Epithelial None Seen HPF (0-3); Urobilinogen Normal mg/dL (Less than 2); WBC/HPF 21-50 HPF (0-3); pH, Urine 7.5 (5.0-9.0)
[2020-07-07 03:35] LABS: Bacteria/HPF 1+ HPF (None Seen); Sperm/HPF 4+ HPF (None Seen)
[2020-07-07 03:36] LABS: Urine Culture Reflex Yes Yes
[2020-07-07 05:11] LABS: Anion Gap 23 mmol/L (10-20); BUN (Urea Nitrogen) 76 mg/dL (8.9-20.6); Calc. Creatinine Clearance 9 mL/min (70-130); Calcium 8.1 mg/dL (7.8-10.44); Carbon Dioxide 21 mmol/L (22-29); Chloride 101 mmol/L (98-107); Estimated GFR-MDRD 6; Glucose 89 mg/dL (70-105); Potassium 4.9 mmol/L (3.5-5.1); Sodium 140 mmol/L (136-145)
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
[2020-07-07 05:52] LABS: Band 1 % (5-11); Hemoglobin 8.7 g/dL (14.0-18.0); Lymphocytes 8 % (21-51); MDiff Complete? YES; Mean Corpuscular HGB CONC 32.7 g/dL (32.0-36.0); Mean Corpuscular Hemoglobin 29.1 pg (27.0-31.0); Mean Platelet Volume 8.8 fL (7.4-10.4); Monocytes 3 % (0-10); Neutrophil 88 % (42-75); Platelet Count 244 thou/uL (130-400); RBC Distribution Width 15.7 % (11.5-14.5); Red Blood Cell (RBC) Count 2.97 mill/uL (4.70-6.10); White Blood Cell (WBC) Count 13.5 thou/uL (4.8-10.8)
[2020-07-07] MEDS: Isosorbide Mononitrate 20 MG TAB PO SCH ×2 (07:00→20:44)
[2020-07-07] MEDS: hydrALAZINE 25 MG TAB PO SCH ×3 (07:00→20:44)
[2020-07-07] MEDS: Aspirin 81 mg Enteric Coated Tablet PO SCH (07:01)
[2020-07-07] MEDS: Carvedilol 25 MG TAB PO SCH ×2 (07:01→20:44)
[2020-07-07] MEDS: Amlodipine 5 MG TAB PO SCH ×2 (07:01→20:44)
[2020-07-07] MEDS ORDERED: READ PPD TEST SITE PO SCH (09:00)
[2020-07-07] MEDS ORDERED: Heparin 10,000 UNITS/ 10 ML VIAL ONE ×2 (09:43→11:35)
[2020-07-07] MEDS ORDERED: CEFAZOLIN 2 GM in Premix Bag 1 BAG IVPB SCH ×2 (09:45→16:45)
[2020-07-07] MEDS ORDERED: traMADol HCl 50 MG TAB PO PRN (09:47)
[2020-07-07] MEDS ORDERED: Lidocaine 1% PF 5 ML VIAL ONE (10:29)
[2020-07-07] MEDS ORDERED: PHENYLEPHRINE-NS 100 MCG/ML 10 ML SYRINGE ONE (10:29)
[2020-07-07] MEDS ORDERED: PROPOFOL 200 MG/20 ML VIAL ONE (10:29)
--- NOTE | 2020-07-07 11:23 | PRG ---
DATE OF SERVICE: 07/07/2020 SUBJECTIVE: Patient was seen and examined at bedside and overnight events noted. Patient denies any shortness of breath or chest pain or palpitation. No history of nausea or vomiting or diarrhea or fever or chills or cramps. OBJECTIVE: General: This is a well-built male, in no apparent distress. Vital Signs: Temperature 98.3. Heart Rate 93. Respiratory rate 16. Blood pressure 177/105. HEENT: Atraumatic, normocephalic. Oral mucosa is moist. Neck: Supple. Cardiovascular: S1, S2 heard. Rate and rhythm regular. Respiratory: Clear to auscultation. Gastrointestinal: Abdomen is soft. Musculoskeletal: No tenderness. No edema. Dermatologic: No skin rash. Neurologic: Alert and awake and oriented x3. No focal neurologic deficits. Moving all the extremities. Psychiatric: Mood and affect normal. LABORATORY DATA: Potassium 4.9, BUN is 76, and creatinine is 12.3. ASSESSMENT AND PLAN: 1. End-stage renal disease. Continue on hemodialysis. 2. Vitamin D deficiency with secondary hyperparathyroidism. 3. Edema. 4. Hypertension. 5. Fluid overload. 6. Anemia of chronic disease. Continue on dialysis. Surgery consulted for placement of dialysis, long-term dialysis access. The patient is not interested in PD at this point. Appreciate help from Surgery. We will have dialysis today, then continue dialysis Tuesday, Tuesday, and Tuesday. Follow with Case Management for outpatient placement. Job ID: [id number]
[2020-07-07] MEDS ORDERED: Bupivacaine 0.25% HCL 30 ML VIAL ONE (11:35)
[2020-07-07] MEDS ORDERED: Lidocaine 1% w/Epinephrine 1:100K 20 ML VIAL ONE (11:35)
[2020-07-07] MEDS ORDERED: Protamine Sulfate 50 MG/5 ML VIAL ONE (11:35)
[2020-07-07] MEDS ORDERED: Heparin 5,000 UNITS/ML VIAL ONE (11:35)
[2020-07-07] MEDS ORDERED: Midazolam HCl 2 mg/2 ml Vial ONE (11:40)
[2020-07-07] MEDS ORDERED: Fentanyl 100 MCG/2 ML VIAL ONE ×2 (11:40→14:09)
[2020-07-07] MEDS ORDERED: Sodium Chloride 0.9% 30 ML ONE (11:52)
[2020-07-07] MEDS: Heparin 5,000 UNITS/ML VIAL SC SCH ×2 (11:54→20:46)
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
[2020-07-07] MEDS ORDERED: Norepinephrine 4 MG/4 ML VIAL ONE (13:19)
[2020-07-07] MEDS ORDERED: Promethazine HCl 25 MG/ML VIAL IM PRN (14:02)
[2020-07-07] MEDS ORDERED: Ondansetron HCl/PF 4 MG/2 ML Vial IVP PRN (14:02)
[2020-07-07] MEDS ORDERED: HYDROmorphone 2 MG/ML VIAL SLOW IVP PRN (14:02)
[2020-07-07] MEDS ORDERED: Morphine Sulfate 2 MG/ML SYRINGE SLOW IVP PRN (14:02)
[2020-07-07] MEDS ORDERED: PACU-Morphine 4MG/ML VIAL SLOW IVP PRN (14:02)
[2020-07-07] MEDS ORDERED: Promethazine HCl 25 MG/ML VIAL SLOW IVP PRN (14:02)
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
[2020-07-07 15:06] VITALS: BMI 25.0
[2020-07-07] MEDS ORDERED: Sterile Water 10 ML VIAL IVP SCH (15:45)
[2020-07-07] MEDS: EPOETIN ALFA-EPBX (ESRD) 10,000 UNIT/ML VIAL IVP SCH (16:04)
[2020-07-07] MEDS: Activase 2 MG VIAL CATH SCH ×2 (16:13→16:14)
--- NOTE | 2020-07-07 19:09 | CON ---
DATE OF CONSULTATION: HISTORY OF PRESENT ILLNESS: West Sawyer is a 40-year-old black male, well known to me. 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 He subsequently underwent closure on 10/24/2013 as well as debridement of his decubitus. Dr. Sevilla debrided his scrotum. I next saw him on 01/29/2014, undergoing further debridement of decubitus. The patient now presents with end-stage renal disease, uncontrolled hypertension, not on any medications at home in the hospital with a temporary groin catheter since 06/26/2020. I asked by Dr. Street to see Mr. Sawyer regarding definitive dialysis access. Ultrasound vein mapping suggests the right arm to have superior vein. Plan is for a cuffed-tunneled hemodialysis catheter central line and right arm primary fistula. He understands risks and benefits, consents. Ultrasound of abdomen and pelvis reveals chronic renal disease. Carotid Dopplers reveal no significant carotid lesions. Marking ultrasound reveals good veins both arms right arm superior. The patient is right-handed. ALLERGIES: NONE. SOCIAL HISTORY: Tobacco, none. Alcohol, none. MEDICATIONS: Outpatient, none. In-hospital medications, he has been started on: 1. Coreg 50 mg b.i.d. 2. Hydralazine 50 mg t.i.d. 3. Isosorbide 20 mg b.i.d. PAST SURGICAL HISTORY: Right [id number] amputation; debridement of ischium decubitus, sacral decubitus and scrotum in 2013; and right AKA guillotine closure. PAST MEDICAL HISTORY: Hypertension, end-stage renal disease. PHYSICAL EXAMINATION: VITAL SIGNS: Height 5 feet 8 inch, weight 168 pounds. HEAD, EARS, EYES, NOSE AND THROAT: Unremarkable. LUNGS: Clear to auscultation. CARDIAC: Rhythm rate and rhythm without murmur or gallop. ABDOMEN: Soft and nontender. EXTREMITIES: Unremarkable, right AKA well healed. Right femoral vein Trialysis catheter. ASSESSMENT AND PLAN: End-stage renal disease. PLAN: Placement of a hemodialysis catheter central line, right arm fistula. He understands risks, benefits, and consents. Job ID: [id number]
[2020-07-07] MEDS: traMADol HCl 50 MG TAB PO PRN (19:20)
[2020-07-07] MEDS: Acetaminophen 500 MG TAB PO PRN (20:44)
[2020-07-08] MEDS ORDERED: traMADol HCl 50 MG TAB PO SCH (00:45)
[2020-07-08] MEDS: Acetaminophen 500 MG TAB PO PRN ×2 (02:47→22:36)
[2020-07-08] MEDS: traMADol HCl 50 MG TAB PO PRN ×2 (06:47→20:18)
--- NOTE | 2020-07-08 07:16 | OP ---
DATE OF PROCEDURE: 07/07/2020 PREOPERATIVE DIAGNOSES: End-stage renal disease, poor IV access, and hypertension. POSTOPERATIVE DIAGNOSES: End-stage renal disease, poor IV access, and hypertension. PROCEDURES PERFORMED: Right IJ cuffed tunneled dialysis catheter, left IJ central line, right arm primary fistula, perforating branch antecubital vein to the proximal radial artery of excellent caliber, cephalic vein upper arm calibrated to 3.5 mm coronary dilator, no communication in the basilic vein noted. Note, the forearm cephalic vein was atretic. ANESTHESIA: General, local 0.5% Marcaine with epinephrine 30 mL mixed with 1% Xylocaine with epinephrine 20 mL. DESCRIPTION OF PROCEDURE: The patient was taken to the operating room, where under general LMA anesthesia neck, chest, and right upper extremity were prepared with ChloraPrep and draped in routine fashion. Local anesthetic was infiltrated in the skin and subcutaneous tissue about the operative sites. Ultrasound used to cannulate both the right and left internal jugular veins and J-wire was threaded, trocar catheter removed. Skin site enlarged sharply on both sides. Stab incision made in the right chest. Seldinger technique was used to place a triple-lumen catheter, left IJ securing it with 3-0 nylon suture. Each port aspirated, blood flushed with saline solution. Right side of pre-curved [employer] cuffed tunneled hemodialysis catheter tunneled between 2 incisions, placed the fabric cuff beneath the skin exit site over the right chest. Catheter was secured with 2 interrupted suture of 3-0 nylon. Small and medium size dilators placed over the J-wire into the internal jugular vein removed. Dilator and Peel-Away sheath placed over the J-wire in superior vena cava. Dilator and J-wire removed. Catheter placed with the Peel-Away sheath. Peel-Away sheath removed. Platysma was approximated with 4-0 Monocryl, skin with subdermal 4-0 Monocryl. Felida glue applied. Each port aspirated, blood flushed with saline solution, heparinized saline solution 1000 units of heparin per mL, indicating volume of the port. Sterile dressings applied. Final fluoroscopic images revealed good line placement. Attention was then turned to the right arm. Incision was made between the radial artery and cephalic vein. Cephalic vein was too small. Wound approximated by approximating subcutaneous tissue with 3-0 Monocryl, skin with subdermal 4-0 Monocryl, and Felida glue applied. Incision was made in the proximal volar forearm longitudinally, carried down through skin and subcutaneous tissue, taking great care to preserve nerve structures and avoid harm. The cephalic vein forearm was too small to use. The perforating branch antecubital vein upper arm cephalic vein was adequate. There was no communication in the basilic vein noted through this incision. Perforating branch dissected free and branches were divided between 4-0 silk ties and clips and it was spatulated over branch points, interrogated with coronary dilators, passing coronary dilators from 2 mm to a 3.5 mm coronary dilator throughout the cephalic vein outflow without obstruction. It was flushed with heparinized saline solution. The patient was given 6000 units of heparin intravenously. Brachial, radial, and ulnar artery were dissected free and they were very deep, but of good quality and good size. After adequate heparin circulation; brachial, radial, and ulnar artery clamped with vascular clamps. Longitudinal arteriotomy was made sharply, elongated with Matt scissors and vein likewise spatulated proximal radial artery anastomosed with 2 sutures of 6-0 Prolene. Branches ligated with 4-0 silk ties. Vascular flow released. Good hemostasis obtained with 6-0 Prolene with good Doppler signals, cephalic vein outflow upper arm. Good hemostasis noted. Subcutaneous tissue was approximated with 3-0 Monocryl, skin with subdermal 4-0 Monocryl, and Felida glue applied. The patient tolerated the procedure well. Job ID: [id number]
[2020-07-08] MEDS: hydrALAZINE 25 MG TAB PO SCH ×3 (08:20→20:18)
[2020-07-08] MEDS: Carvedilol 25 MG TAB PO SCH ×2 (08:20→20:18)
[2020-07-08] MEDS: Amlodipine 5 MG TAB PO SCH ×2 (08:20→20:19)
[2020-07-08] MEDS: Isosorbide Mononitrate 20 MG TAB PO SCH ×2 (08:21→20:17)
[2020-07-08] MEDS: Heparin 5,000 UNITS/ML VIAL SC SCH ×2 (08:21→20:29)
[2020-07-08 08:46] LABS: Hemoglobin 8.1 g/dL (14.0-18.0); Mean Corpuscular HGB CONC 32.4 g/dL (32.0-36.0); Mean Corpuscular Hemoglobin 29.2 pg (27.0-31.0); Mean Platelet Volume 8.4 fL (7.4-10.4); Platelet Count 225 thou/uL (130-400); RBC Distribution Width 15.1 % (11.5-14.5); Red Blood Cell (RBC) Count 2.78 mill/uL (4.70-6.10); White Blood Cell (WBC) Count 10.8 thou/uL (4.8-10.8)
[2020-07-08 08:47] LABS: Lymphocytes 11 % (21-51); MDiff Complete? YES; Monocytes 12 % (0-10); Neutrophil 77 % (42-75); Platelet Morphology Comment Appears Adequate; RBC Morphology Normal
[2020-07-08] MEDS ORDERED: Metoclopramide HCl 10 MG/2 ML VIAL ONE (09:02)
[2020-07-08] MEDS ORDERED: PHENYLEPHRINE-NS 100 MCG/ML 10 ML SYRINGE ONE (09:02)
[2020-07-08] MEDS ORDERED: Ondansetron PF 4 MG/2 ML Vial ONE (09:02)
[2020-07-08] MEDS ORDERED: ePHEDrine 50 MG/ML VIAL ONE (09:02)
[2020-07-08] MEDS ORDERED: Lidocaine 1% PF 5 ML VIAL ONE (09:02)
[2020-07-08] MEDS ORDERED: PROPOFOL 200 MG/20 ML VIAL ONE (09:02)
[2020-07-08] MEDS: Aspirin 81 mg Enteric Coated Tablet PO SCH (09:24)
--- NOTE | 2020-07-08 10:21 | PRG ---
DATE OF SERVICE: 07/08/2020 SUBJECTIVE: Patient was seen and examined at bedside and overnight events noted. Patient denies any shortness of breath or chest pain or palpitation. No history of nausea or vomiting or diarrhea or fever or chills or cramps. OBJECTIVE: GENERAL: This is a well-built male in no apparent distress. VITAL SIGNS: Temperature 98.5. Heart rate 74. Respiratory rate 16. Blood pressure 166/82. HEENT: Atraumatic, normocephalic. Oral mucosa is moist NECK: Supple. CARDIOVASCULAR: S1, S2 heard. Rate and rhythm regular. RESPIRATORY: Clear to auscultation. GASTROINTESTINAL: Abdomen is soft. MUSCULOSKELETAL: No tenderness. No edema. DERMATOLOGIC: No skin rash. NEUROLOGIC: Alert and awake and oriented X3. No focal neurologic deficits. Moving all the extremities. PSYCHIATRIC: Mood and affect normal. LABORATORY DATA: Potassium is 4.9, BUN is 76, and creatinine is 12.38. ASSESSMENT AND PLAN: 1. End-stage renal disease. Continue hemodialysis. Dialysis access did not work, the new catheter was placed. So, plan is to try dialysis after the catheter which was placed overnight and if catheter not working, Dr. Nicolas is willing to place a new catheter and he is aware. 2. . 3. Edema. 4. Hypertension. 5. Fluid overload. Overall labs are stable. Cardiorespiratory status stable. We will have new catheter placed if the catheter from yesterday not working. Follow with Case Management for outpatient placement. Job ID: [id number]
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
[2020-07-08] MEDS ORDERED: Heparin 10,000 UNITS/ 10 ML VIAL ONE (13:32)
[2020-07-08] MEDS ORDERED: Sodium Chloride 0.9% 20 ML ONE (13:32)
[2020-07-08] MEDS ORDERED: Bupivacaine PF 0.5% 30 ML VIAL ONE (13:32)
[2020-07-08] MEDS ORDERED: Lidocaine 1% w/Epinephrine 1:100K 20 ML VIAL ONE (13:32)
[2020-07-08] MEDS ORDERED: Midazolam HCl 2 mg/2 ml Vial ONE (13:36)
[2020-07-08] MEDS ORDERED: Famotidine/PF 20 mg/2ml Vial ONE (13:36)
[2020-07-08] MEDS ORDERED: Fentanyl 100 MCG/2 ML VIAL ONE (13:36)
[2020-07-08] MEDS ORDERED: Promethazine HCl 25 MG/ML VIAL SLOW IVP PRN (14:43)
[2020-07-08] MEDS ORDERED: Promethazine HCl 25 MG/ML VIAL IM PRN (14:43)
[2020-07-08] MEDS ORDERED: Ondansetron HCl/PF 4 MG/2 ML Vial IVP PRN (14:43)
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
--- NOTE | 2020-07-08 15:22 | OP ---
DATE OF PROCEDURE: 07/08/2020 PREOPERATIVE DIAGNOSES: Dysfunctional hemodialysis catheter, right IJ; end-stage renal disease. POSTOPERATIVE DIAGNOSES: Dysfunctional hemodialysis catheter, right IJ; end-stage renal disease. PROCEDURE PERFORMED: Removal of old hemodialysis catheter, placement of new hemodialysis catheter, fluoroscopy used. ANESTHESIA: General LMA, local 0.5% Marcaine 30 mL mixed with 1% Xylocaine with epinephrine 20 mL. Note, I initially used left IJ length catheter in the right IJ and then when removing the old right IJ catheter, placed a right subclavian length catheter, which seemed to be too deep into the right atrium, would not work well. Thus switching down to a left IJ hemodialysis catheter length, placed in a new exit site, so that it was higher in the SVC, where it seemed to work better. Anesthesia as described. DESCRIPTION OF PROCEDURE: The patient was taken to the operating room, where under LMA anesthesia, right side of the neck and chest and catheter prepared with ChloraPrep and draped in routine fashion. Local anesthetic was infiltrated in the skin and subcutaneous tissue about the operative site. Incision was made through the old scar in the right neck incision, identifying hemodialysis catheter below the platysma, retrieving it, controlling with a hemostat, transected and removed the old catheter. New stab incision was made and the longer catheter length placed with J-wire, but it would not work well, thus it was removed after J-wire replaced. A new exit site more inferior and lateral was selected and stab incision made and the new hemodialysis catheter, left IJ length placed with longer tunnel and cuff placed in the skin exit site, where the tunneling device secured with 3-0 nylon suture. J-wire threaded through the old catheter, and dilator and Peel-Away sheath placed over the old J-wire after removing the old catheter and dilator and J-wire removed after the catheter placed and Peel-Away sheath removed, catheter manipulated and seen to work well in its new position. Fluoroscopic images verified this position higher in the SVC. Platysma was approximated with 4-0 Monocryl, skin with subdermal 4-0 Monocryl with more recently placed stab incision closed with 4-0 Monocryl, and Iona glue applied. Each port aspirated of blood, flushed with saline solution and heparinized saline solution with 1000 units of heparin per mL, indicating volume of the port. Job ID: [id number]
[2020-07-09 10:00] LABS: Hemoglobin 8.5 g/dL (14.0-18.0); Mean Corpuscular Hemoglobin 28.2 pg (27.0-31.0); Mean Corpuscular Volume 91.1 fL (78.0-98.0); Platelet Count 226 thou/uL (130-400)
[2020-07-09 11:25] LABS: Band 1 % (5-11); Hypochromia SLIGHT = 6-15 cells (100X) (0-5/hpf); Lymphocytes 5 % (21-51); MDiff Complete? YES; Monocytes 3 % (0-10); Neutrophil 91 % (42-75); Platelet Morphology Comment Appears Adequate; Polychromasia SLIGHT = 2-3 cells (100X) (0-2/hpf)
[2020-07-09] MEDS: Carvedilol 25 MG TAB PO SCH (13:00)
[2020-07-09] MEDS: Amlodipine 5 MG TAB PO SCH (13:00)
[2020-07-09] MEDS: EPOETIN ALFA-EPBX (ESRD) 10,000 UNIT/ML VIAL IVP SCH (13:00)
[2020-07-09] MEDS: Aspirin 81 mg Enteric Coated Tablet PO SCH (13:00)
[2020-07-09] MEDS: Isosorbide Mononitrate 20 MG TAB PO SCH (13:01)
[2020-07-09] MEDS: hydrALAZINE 25 MG TAB PO SCH ×2 (13:01→14:16)
[2020-07-09] MEDS: Heparin 5,000 UNITS/ML VIAL SC SCH (13:01)
--- NOTE | 2020-07-09 13:06 | PRG ---
DATE OF SERVICE: 07/09/2020 SUBJECTIVE: Patient was seen and examined at bedside and overnight events noted. Patient denies shortness of breath or cramps or chest pain or palpitation. No Nausea or vomiting or diarrhea or fever or chills. OBJECTIVE: GENERAL: This is a well-built male in no apparent distress. VITAL SIGNS: Temperature , blood pressure 145/82. Musculoskeletal : No tenderness, No edema HEENT: Atraumatic normocephalic Neck: Supple Cardiovascular: S1S2 heard, Rate and rhythm regular Respiratory: Clear to auscultation Gastrointestinal: Abdomen is soft Dermatologic : No skin rash Neurologic: Alert and awake and oriented X3 No focal neurologic deficits. Moving all the extremities. Psychiatric: Mood and affect normal LABORATORY DATA: No labs. ASSESSMENT AND PLAN: 1. End-stage renal disease. Continue dialysis. Follow with Case Management for outpatient placement. Appreciate help from Surgery. 2. Edema. 3. Hypertension. 4. Fluid overload. 5. Anemia of chronic disease. 6. Follow with Case Management for outpatient placement. Tolerating dialysis. Job ID: [id number] [facility]
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
[2020-07-09 16:12] VITALS: BP 166/88; TEMP 98.8
[2020-07-09 18:04] LABS: ANA Symphony (Qualitative) Negative (Negative); ANA Symphony (Quantitative) 0.2 Ratio (< 0.7 Negative); EliA Thy New Method **** NEW METHOD ****; EliA Vaculitis New Method **** NEW METHOD ****; Mitochondrial Ab 1.3 U/mL (<4 Negative); Thyroid Peroxidase IgG Ab Less than 4.0 IU/mL (<25 Normal); dsDNA IgG Antibody 2.6 IU/mL (<10 Negative)
== END 2020-07-09 18:33 | disposition home or self-care (01) | DRG 673 ==
LOC: ERS 04:05 → CCU 06:50 → IMCU/EMU 06-27 17:40 → 2NO 07-04 23:14
PROVIDERS: ADMIT Internal Medicine; ATTEND Hospitalist
PROC: 031B0ZF Bypass Right Radial Artery to Lower Arm Vein, Open Approach (ICD-10-PCS; principal; 2020-07-07)
PROC: 0JH63XZ Insertion of Tunneled Vascular Access Device into Chest Subcutaneous Tissue and Fascia, Percutaneous Approach (ICD-10-PCS; 2020-07-07)
PROC: 02HV33Z Insertion of Infusion Device into Superior Vena Cava, Percutaneous Approach (ICD-10-PCS; 2020-07-07)
PROC: B5181ZA Fluoroscopy of Superior Vena Cava using Low Osmolar Contrast, Guidance (ICD-10-PCS; 2020-07-07)
PROC: B548ZZA Ultrasonography of Superior Vena Cava, Guidance (ICD-10-PCS; 2020-07-07)
PROC: 5A1D70Z Performance of Urinary Filtration, Intermittent, Less than 6 Hours Per Day (ICD-10-PCS; 2020-07-07)
PROC: 0JPT3XZ Removal of Tunneled Vascular Access Device from Trunk Subcutaneous Tissue and Fascia, Percutaneous Approach (ICD-10-PCS; 2020-07-08)
PROC: 0JH63XZ Insertion of Tunneled Vascular Access Device into Chest Subcutaneous Tissue and Fascia, Percutaneous Approach (ICD-10-PCS; 2020-07-08)
PROC: 02PY33Z Removal of Infusion Device from Great Vessel, Percutaneous Approach (ICD-10-PCS; 2020-07-08)
PROC: 02HV33Z Insertion of Infusion Device into Superior Vena Cava, Percutaneous Approach (ICD-10-PCS; 2020-07-08)
PROC: B5181ZA Fluoroscopy of Superior Vena Cava using Low Osmolar Contrast, Guidance (ICD-10-PCS; 2020-07-08)
DX: N17.9 Acute kidney failure, unspecified (principal); J96.01 Acute respiratory failure with hypoxia; I50.21 Acute systolic (congestive) heart failure; J81.0 Acute pulmonary edema; I16.1 Hypertensive emergency; G82.20 Paraplegia, unspecified; R04.2 Hemoptysis; E87.2 Acidosis; G81.90 Hemiplegia, unspecified affecting unspecified side; I13.2 Hypertensive heart and chronic kidney disease with heart failure and with stage 5 chronic kidney disease, or end stage renal disease; I42.8 Other cardiomyopathies; R04.89 Hemorrhage from other sites in respiratory passages; T82.594A Other mechanical complication of infusion catheter, initial encounter; N18.6 End stage renal disease; E55.9 Vitamin D deficiency, unspecified; Z20.828 Contact with and (suspected) exposure to other viral communicable diseases; R31.9 Hematuria, unspecified; D63.1 Anemia in chronic kidney disease; N25.81 Secondary hyperparathyroidism of renal origin; D69.6 Thrombocytopenia, unspecified; F17.290 Nicotine dependence, other tobacco product, uncomplicated; E87.6 Hypokalemia; E88.09 Other disorders of plasma-protein metabolism, not elsewhere classified; Y83.8 Other surgical procedures as the cause of abnormal reaction of the patient, or of later complication, without mention of misadventure at the time of the procedure; Z89.611 Acquired absence of right leg above knee
CPT/HCPCS: 36415; 36416; 36556; 36600; 71045; 71250; 76770; 80048; 80053; 80061; 80306; 81001; 82306; 82553; 82570; 82728; 82805; 83010; 83036; 83516; 83520; 83540; 83550; 83605; 83615; 83835; 83880; 83970; 84156; 84484; 85007; 85025; 85027; 85046; 85060; 85652; 86038; 86060; 86140; 86160; 86225; 86256; 86376; 86580; 86704; 86706; 86769; 86803; 87040; 87086; 87340; 87635; 90471; 90732; 90935; 93005; 93306; 93880; 93970; 93975; 94660; 94760; 96365; 96366; 96367; 96368; C1751; C1752; G0009; G0257; J0690; J0692; J1644; J2250; J2405; J2704; J2720; J2765; J2930; J2997; J3010; J3370; J3490; J7050; S0020; S0028; U0002; U0003

== ENCOUNTER 2021-01-15 13:33 | Outpatient (CLI) | payer OTHER | END 2021-01-15 13:34 | disposition home or self-care (01) | LOC: ULT 13:33 | PROVIDERS: ATTEND Internal Medicine | DX: I42.8 Other cardiomyopathies (principal); I08.1 Rheumatic disorders of both mitral and tricuspid valves | CPT/HCPCS: 93306 ==